=== PATIENT | male | born 1955 | race Two or more races ===

== ENCOUNTER 2019-01-30 13:21 | Emergency (ER) | payer OTHER ==
[2019-01-30] MEDS ORDERED: Aspirin 81 MG Tab.Chew PO ONE (13:23)
[2019-01-30] MEDS ORDERED: Nitroglycerin 0.4 MG Tab.SL SL PRN (13:23)
[2019-01-30] MEDS ORDERED: Albuterol/Ipratropium 3.0-0.5 MG/3 ML Neb Soln NEB ONE (13:23)
--- NOTE | 2019-01-30 13:26 | EDM.PDOC ---
ED HPI GENERAL MEDICAL PROBLEM - General Chief Complaint: Chest Pain Stated Complaint: CHEST PAIN Time Seen by Provider: 01/30/19 13:22 Source of Information: Reports: Patient History Limitations: Reports: No Limitations - History of Present Illness INITIAL COMMENTS - FREE TEXT/NARRATIVE: HISTORY AND PHYSICAL: History of present illness: Patient is a 65-year-old male who presents to the emergency room with complaints of midsternal chest pain and shortness of breath. The pain in the chest is described as a pressure and feels that his chest is "tight". Shortness of breath is exacerbated with physical activity and ambulation. He denies any fever, chills, diaphoresis, headache or change in vision. Denies any abdominal pain, nausea, vomiting, diarrhea, constipation or dysuria. Reports he has been eating and drinking appropriately. Patient reports he is otherwise healthy and has no significant health problems that he has been diagnosed with. He states that the majority of his family members to have a history of hypertension and heart disease. Review of systems: As per history of present illness and below otherwise all systems reviewed and negative. Past medical history: As per history of present illness and as reviewed below otherwise noncontributory. Surgical history: As per history of present illness and as reviewed below otherwise noncontributory. Social history: See social history for further information Family history: As per history of present illness and as reviewed below otherwise noncontributory. Physical exam: General: Well-developed and well-nourished 65-year-old male. Alert and oriented. Nontoxic appearing and in no acute distress. HEENT: Atraumatic, normocephalic, pupils equal and reactive bilaterally, negative for conjunctival pallor or scleral icterus, mucous membranes moist, TMs normal bilaterally, throat clear, neck supple, nontender, trachea midline. No drooling or trismus noted. No meningeal signs. No hot potato voice noted. Lungs: Poor air exchange throughout, diminished on the left chest wall, breath sounds equal bilaterally, chest nontender. Heart: S1S2, regular rate and rhythm without overt murmur Abdomen: Soft, nondistended, nontender. Negative for masses or hepatosplenomegaly. Negative for costovertebral tenderness. Pelvis: Stable nontender. Genitourinary: Deferred. Rectal: Deferred. Skin: Intact, warm, dry. No lesions or rashes noted. Extremities: Atraumatic, moves all extremities per self without difficulty or deficits. Neurovascular unremarkable. Neuro: Awake, alert, oriented. Cranial nerves II through XII unremarkable. Cerebellum unremarkable. Motor and sensory unremarkable throughout. Exam nonfocal. Notes: Patient states he currently does not have any chest pain but tightness with inspiration and dyspnea. Declines the nitroglycerin. We'll give IV medication for blood pressure management. Chest x-ray shows cardiomegaly and vascular prominence with prominent interstitium. No consolidation noted. Patient's blood pressure did come down after the IV medication. I did offer the patient admission which he declines. He is pleasantly adamant about being discharged and states he will follow-up with primary care for reevaluation of his high blood pressure. He is pain free. Due to his symptoms and slight elevation in white count and a cover him for incase of an atypical pneumonia. Supportive care measures were reviewed and discussed. Voices understanding and is agreeable to plan of care. Denies any further questions or concerns at this time. Diagnostics: CBC, CMP, bnp, troponin, EKG, 2 view chest x-ray Therapeutics: Aspirin, sublingual nitroglycerin, labetolol Prescription: Z-Mateus, Medrol Dosepak, pro-air inhaler Impression: Dyspnea Hypertension Plan: 1. Please take the medications as prescribed. 2. I do want to do follow-up with the a primary caregiver for reevaluation of your high blood pressure. You had readings today of 225/115 and 169/107. You may need to be started on medication for this. 3. If her symptoms return, worsen or new symptoms develop please return to the emergency room immediately. Definitive disposition and diagnosis as appropriate pending reevaluation and review of above. - Related Data Allergies Allergy/AdvReac Type Severity Reaction Status Date / Time Penicillins Allergy Hives Verified 01/30/19 13:32 shellfish derived Allergy Hives Verified 01/30/19 13:32 Home Meds: Home Meds . [No Known Home Meds] 01/30/19 [History] ED ROS GENERAL - Review of Systems Review Of Systems: ROS reveals no pertinent complaints other than HPI. ED EXAM, GENERAL - Physical Exam Exam: See Below (See dictation) Course - Vital Signs Last Recorded V/S: Last Vital Signs Temp 97.0 F 01/30/19 13:25 Pulse 88 01/30/19 14:12 Resp 18 01/30/19 14:12 BP 124/84 01/30/19 14:12 Pulse Ox 98 01/30/19 14:12 - Orders/Labs/Meds Orders: Active Orders 24 hr Category Date Time Status EKG Documentation Completion [RC] STAT Care 01/30/19 13:23 Active RT Aerosol Therapy [RC] ASDIRECTED Care 01/30/19 13:23 Active Nitroglycerin [Nitrostat] Med 01/30/19 13:23 Active 0.4 mg SL Q5M PRN Medication Orders Nitroglycerin (Nitrostat) 0.4 mg SL Q5M PRN PRN Reason: Chest Pain Labs: Laboratory Tests 01/30/19 01/30/19 01/30/19 Range/Units 13:25 13:25 13:25 WBC 11.14 H (4.0-11.0) K/uL RBC 4.78 (4.50-5.90) M/uL Hgb 14.9 (13.0-17.0) g/dL Hct 42.9 (38.0-50.0) % MCV 89.7 (80.0-98.0) fL MCH 31.2 (27.0-32.0) pg MCHC 34.7 (31.0-37.0) g/dL RDW Std Deviation 45.8 (28.0-62.0) fl RDW Coeff of Adiel 14 (11.0-15.0) % Plt Count 197 (150-400) K/uL MPV 11.70 (7.40-12.00) fL Neut % (Auto) 69.5 (48.0-80.0) % Lymph % (Auto) 22.4 (16.0-40.0) % [place] % (Auto) 6.5 (0.0-15.0) % Eos % (Auto) 1.3 (0.0-7.0) % Baso % (Auto) 0.3 (0.0-1.5) % Neut # (Auto) 7.8 H (1.4-5.7) K/uL Lymph # (Auto) 2.5 H (0.6-2.4) K/uL [place] # (Auto) 0.7 (0.0-0.8) K/uL Eos # (Auto) 0.1 (0.0-0.7) K/uL Baso # (Auto) 0.0 (0.0-0.1) K/uL Nucleated RBC % 0.0 /100WBC Nucleated RBCs # 0 K/uL Sodium 141 (136-148) mmol/L Potassium 4.1 (3.5-5.1) mmol/L Chloride 107 (98-107) mmol/L Carbon Dioxide 23.9 (21.0-32.0) mmol/L BUN 10 (7.0-18.0) mg/dL Creatinine 0.8 (0.8-1.3) mg/dL Est Cr Clr Drug Dosing 96.97 mL/min Estimated GFR (MDRD) > 60.0 ml/min Glucose 120 H (74-106) mg/dL Calcium 8.6 (8.5-10.1) mg/dL Total Bilirubin 1.0 (0.2-1.0) mg/dL AST 43 H (15-37) IU/L ALT 64 H (14-63) IU/L Alkaline Phosphatase 69 (46-116) U/L Troponin I < 0.050 (0.000-0.056) ng/mL B-Natriuretic Peptide 474 H (<100) PG/ML Total Protein 7.8 (6.4-8.2) g/dL Albumin 3.4 (3.4-5.0) g/dL Globulin 4.4 H (2.6-4.0) g/dL Albumin/Globulin Ratio 0.8 L (0.9-1.6) Meds: Medications Generic Name Dose Route Start Last Admin Trade Name Freq PRN Reason Stop Dose Admin Nitroglycerin 0.4 mg 01/30/19 13:23 Nitrostat SL Q5M PRN Chest Pain Discontinued Medications Generic Name Dose Route Start Last Admin Trade Name Freq PRN Reason Stop Dose Admin Albuterol/Ipratropium 3 ml 01/30/19 13:23 01/30/19 13:27 Duoneb 3.0-0.5 Mg/3 Ml NEB 01/30/19 13:24 3 ml ONETIME ONE Administration Aspirin 324 mg 01/30/19 13:23 01/30/19 13:27 Aspirin PO 01/30/19 13:24 324 mg ONETIME ONE Administration Labetalol HCl 20 mg 01/30/19 13:28 01/30/19 13:34 Normodyne IVPUSH 01/30/19 13:29 20 mg NOW ONE Administration Protocol Departure - Departure Time of Disposition: 14:33 Disposition: Home, Self-Care 01 Clinical Impression: Dyspnea Qualifiers: Dyspnea type: shortness of breath Qualified Code(s): R06.02 - Shortness of breath; R06.00 - Dyspnea, unspecified; R06.01 - Orthopnea Hypertension Qualifiers: Hypertension type: unspecified Qualified Code(s): I10 - Essential (primary) hypertension Instructions: Shortness of Breath, Adult, [id number] Referrals: PCP,Unknown [Primary Care Provider] - Forms: ED Department Discharge Additional Instructions: The following information is given to patients seen in the emergency department who are being discharged to home. This information is to outline your options for follow-up care. We provide all patients seen in our emergency department with a follow-up referral. The need for follow-up, as well as the timing and circumstances, are variable depending upon the specifics of your emergency department visit. If you don't have a primary care physician on staff, we will provide you with a referral. We always advise you to contact your personal physician following an emergency department visit to inform them of the circumstance of the visit and for follow-up with them and/or the need for any referrals to a consulting specialist. The emergency department will also refer you to a specialist when appropriate. This referral assures that you have the opportunity for follow-up care with a specialist. All of these measure are taken in an effort to provide you with optimal care, which includes your follow-up. Under all circumstances we always encourage you to contact your private physician who remains a resource for coordinating your care. When calling for follow-up care, please make the office aware that this follow-up is from your recent emergency room visit. If for any reason you are refused follow-up, please contact the [facility] Emergency Department at and asked to speak to the emergency department charge nurse. [facility] [address] [place] [id number] [facility] [address] [place] [address] 1. Please take the medications as prescribed. 2. I do want to do follow-up with the a primary caregiver for reevaluation of your high blood pressure. You had readings today of 225/115 and 169/107. You may need to be started on medication for this. 3. If her symptoms return, worsen or new symptoms develop please return to the emergency room immediately. - My Orders Last 24 Hours: My Active Orders 01/30/19 13:23 EKG Documentation Completion [RC] STAT RT Aerosol Therapy [RC] ASDIRECTED Nitroglycerin [Nitrostat] 0.4 mg SL Q5M PRN - Assessment/Plan Last 24 Hours: My Active Orders 01/30/19 13:23 EKG Documentation Completion [RC] STAT RT Aerosol Therapy [RC] ASDIRECTED Nitroglycerin [Nitrostat] 0.4 mg SL Q5M PRN
[2019-01-30] MEDS ORDERED: Labetalol 20 MG/4 ML Syringe IVPUSH ONE (13:28)
[2019-01-30 14:00] LABS: CHLORIDE,CL 107 mmol/L (98-107); SODIUM,NA 141 mmol/L (136-148)
--- NOTE | 2019-01-30 14:27 | CR ---
CHEST 2 VIEWS INDICATION: Dyspnea IMPRESSION: Cardiomegaly. Possible mild interstitial edema and vascular prominence but this is difficult to evaluate due to decreased lung volumes. No pulmonary consolidation or large volume effusions. Mild fluid overload or congestive heart failure however could be considered. FINDINGS: Cardiomegaly and vascular prominence with prominent interstitium. This is somewhat accentuated by a crowding due to decreased lung volumes. No consolidation. The costophrenic angles are slightly indistinct but no large effusions are seen. No pneumothorax. EKG leads are present overlying the patient. Dictated by Wyatt Patel MD @ Jan 30 2019 2:24PM Signed by Dr. Wyatt Patel @ Jan 30 2019 2:26PM
== END 2019-01-30 14:51 | disposition home or self-care (01) ==
LOC: EDBD 13:21 → MW.ED 13:21
DX: R06.02 Shortness of breath (principal); R07.2 Precordial pain; I10 Essential (primary) hypertension; Z88.0 Allergy status to penicillin; Z91.013 Allergy to seafood
CPT/HCPCS: 36415; 71046; 80053; 83880; 84484; 85025; 93005; 94640; 96374; 99285; A9270; J3490; J7620-GY

== ENCOUNTER 2019-02-28 12:28 | Emergency (ER) | payer OTHER ==
[2019-02-28] MEDS ORDERED: Albuterol 0.083% 2.5 MG/3 ML Neb Soln NEB ONE (13:38)
[2019-02-28] MEDS ORDERED: methylPREDNISolone Sodium Succinate 125 MG/2 ML SDV IM ONE (13:39)
--- NOTE | 2019-02-28 13:40 | EDM.PDOC ---
ED HPI GENERAL MEDICAL PROBLEM - General Chief Complaint: Respiratory Problem Stated Complaint: SHORTNESS OF BREATH Time Seen by Provider: 02/28/19 13:39 Source of Information: Reports: Patient History Limitations: Reports: No Limitations - History of Present Illness INITIAL COMMENTS - FREE TEXT/NARRATIVE: HISTORY AND PHYSICAL: History of present illness: Patient is a 63-year-old male who presents to the emergency room with complaints of shortness of breath 1 month. He was seen approximately a month ago in the ER and treated with azithromycin, Medrol Dosepak and pro-air inhaler. He states he did feel improvement, but over the past week and a half his symptoms have returned. He states the symptoms are more bothersome at night or when laying flat. Patient denies any fever, chills, headache, change in vision, syncope or near syncope. Denies any chest pain or back pain. Denies any abdominal pain, nausea, vomiting, diarrhea, constipation or dysuria. Has not noted any blood in urine or stool. Patient has been eating and drinking appropriately. Review of systems: As per history of present illness and below otherwise all systems reviewed and negative. Past medical history: As per history of present illness and as reviewed below otherwise noncontributory. Surgical history: As per history of present illness and as reviewed below otherwise noncontributory. Social history: See social history for further information Family history: As per history of present illness and as reviewed below otherwise noncontributory. Physical exam: General: Well-developed and well-nourished 63-year-old male. Alert and oriented. Nontoxic appearing and in no acute distress. HEENT: Atraumatic, normocephalic, pupils equal and reactive bilaterally, negative for conjunctival pallor or scleral icterus, mucous membranes moist, TMs normal bilaterally, throat clear, neck supple, nontender, trachea midline. No drooling or trismus noted. No meningeal signs. No hot potato voice noted. Lungs: Poor air exchange noted to the posterior bases with fine expiratory wheezing, breath sounds equal bilaterally, chest nontender. Heart: S1S2, regular rate and rhythm without overt murmur Abdomen: Soft, nondistended, nontender. Negative for masses or hepatosplenomegaly. Negative for costovertebral tenderness. Pelvis: Stable nontender. Genitourinary: Deferred. Rectal: Deferred. Skin: Intact, warm, dry. No lesions or rashes noted. Extremities: Atraumatic, moves all extremities per self with difficulty or deficits, negative for cords or calf pain. Neurovascular unremarkable. Neuro: Awake, alert, oriented. Cranial nerves II through XII unremarkable. Cerebellum unremarkable. Motor and sensory unremarkable throughout. Exam nonfocal. Notes: X-ray shows a mild bi-basilar infiltrate. Patient does have elevated d-dimer, we 'll do a CTA for follow-up. Chest CT shows small bilateral pleural effusions. The main and central pulmonary arteries are patent without any embolism. I did offer the patient admission which he declines. We'll treat him with outpatient by mouth Levaquin. Vital signs have improved. We discussed the need for appropriate follow-up with primary care as this is his second visit of having high blood pressure. He does want to be started on lisinopril, one dose was given here. He is aware that this medication cannot be refilled her followed through the emergency room. Supportive care measures were reviewed and discussed. Voices understanding and is agreeable to plan of care. Denies any further questions or concerns at this time. Diagnostics: Chest x-ray, EKG, CBC, CMP, Ddimer Therapeutics: DuoNeb, Solu-Medrol IM, Levaquin Prescription: Levaquin Lisinopril Impression: Pneumonia Hypertension Plan: 1. Please take your medications as directed. 2. Establish care with a primary care provider to follow-up on your blood pressure medications and further refills. 3. Return to the ED as needed and as discussed. Definitive disposition and diagnosis as appropriate pending reevaluation and review of above. - Related Data Allergies Allergy/AdvReac Type Severity Reaction Status Date / Time Penicillins Allergy Airway Verified 02/28/19 12:53 Tightness shellfish derived Allergy Airway Verified 02/28/19 12:53 Tightness Home Meds: Home Meds Acetaminophen [Tylenol] 1 tab PO DAILY 02/28/19 [History] Albuterol Sulfate [Proair Hfa] 1 dose IH Q4HR #1 hfa.aer.ad 02/28/19 [Rx] Albuterol [Ventolin HFA] 1 - 2 puff INH Q4H PRN 02/28/19 [History] Lisinopril [Prinivil] 10 mg PO DAILY 30 Days #30 tablet 02/28/19 [Rx] Naproxen Sodium [Aleve] 1 - 2 tab PO BEDTIME 02/28/19 [History] levoFLOXacin [Levaquin] 750 mg PO DAILY 5 Days #5 tab 02/28/19 [Rx] Past Medical History - Past Health History Medical/Surgical History: Denies Medical/Surgical History - Infectious Disease History Infectious Disease History: Reports: Chicken Pox Social & Family History - Family History Family Medical History: Noncontributory - Recreational Drug Use Recreational Drug Use: No ED ROS GENERAL - Review of Systems Review Of Systems: ROS reveals no pertinent complaints other than HPI. ED EXAM, GENERAL - Physical Exam Exam: See Below (See dictation) Course - Vital Signs Last Recorded V/S: Last Vital Signs Temp 97.1 F 02/28/19 14:00 Pulse 88 02/28/19 14:00 Resp 18 02/28/19 14:00 BP 149/85 H 02/28/19 15:21 Pulse Ox 96 02/28/19 14:03 - Orders/Labs/Meds Orders: Active Orders 24 hr Category Date Time Status EKG Documentation Completion [RC] STAT Care 02/28/19 13:39 Active RT Aerosol Therapy [RC] ASDIRECTED Care 02/28/19 13:39 Active Sodium Chloride 0.9% [Saline Flush] Med 02/28/19 14:15 Active 10 ml FLUSH ASDIRECTED PRN Sodium Chloride 0.9% [Saline Flush] Med 02/28/19 14:15 Active 2.5 ml FLUSH ASDIRECTED PRN Saline Lock Insert [OM.PC] Stat Oth 02/28/19 14:15 Ordered Medication Orders Sodium Chloride (Saline Flush) 10 ml FLUSH ASDIRECTED PRN PRN Reason: Keep Vein Open Last Admin: 02/28/19 15:22 Dose: 10 ml Sodium Chloride (Saline Flush) 2.5 ml FLUSH ASDIRECTED PRN PRN Reason: Keep Vein Open Last Admin: 02/28/19 15:22 Dose: 2.5 ml Labs: Laboratory Tests 02/28/19 02/28/19 02/28/19 Range/Units 14:36 14:36 14:36 WBC 6.91 (4.0-11.0) K/uL RBC 4.48 L (4.50-5.90) M/uL Hgb 13.7 (13.0-17.0) g/dL Hct 40.3 (38.0-50.0) % MCV 90.0 (80.0-98.0) fL MCH 30.6 (27.0-32.0) pg MCHC 34.0 (31.0-37.0) g/dL RDW Std Deviation 45.7 (28.0-62.0) fl RDW Coeff of Adiel 14 (11.0-15.0) % Plt Count 219 (150-400) K/uL MPV 10.70 (7.40-12.00) fL Neut % (Auto) 62.6 (48.0-80.0) % Lymph % (Auto) 23.7 (16.0-40.0) % [place] % (Auto) 11.0 (0.0-15.0) % Eos % (Auto) 2.3 (0.0-7.0) % Baso % (Auto) 0.4 (0.0-1.5) % Neut # (Auto) 4.3 (1.4-5.7) K/uL Lymph # (Auto) 1.6 (0.6-2.4) K/uL [place] # (Auto) 0.8 (0.0-0.8) K/uL Eos # (Auto) 0.2 (0.0-0.7) K/uL Baso # (Auto) 0.0 (0.0-0.1) K/uL Nucleated RBC % 0.0 /100WBC Nucleated RBCs # 0 K/uL D-Dimer, Quantitative 0.57 H (0.0-0.50) mg/L FEU Sodium 141 (136-148) mmol/L Potassium 3.8 (3.5-5.1) mmol/L Chloride 106 (98-107) mmol/L Carbon Dioxide 24.5 (21.0-32.0) mmol/L BUN 12 (7.0-18.0) mg/dL Creatinine 0.8 (0.8-1.3) mg/dL Est Cr Clr Drug Dosing 96.97 mL/min Estimated GFR (MDRD) > 60.0 ml/min Glucose 129 H (74-106) mg/dL Calcium 8.7 (8.5-10.1) mg/dL Total Bilirubin 1.0 (0.2-1.0) mg/dL AST 40 H (15-37) IU/L ALT 63 (14-63) IU/L Alkaline Phosphatase 60 (46-116) U/L Troponin I 0.051 (0.000-0.056) ng/mL Total Protein 7.5 (6.4-8.2) g/dL Albumin 3.5 (3.4-5.0) g/dL Globulin 4.0 (2.6-4.0) g/dL Albumin/Globulin Ratio 0.9 (0.9-1.6) Meds: Medications Generic Name Dose Route Start Last Admin Trade Name Freq PRN Reason Stop Dose Admin Sodium Chloride 10 ml 02/28/19 14:15 02/28/19 15:22 Saline Flush FLUSH 10 ml ASDIRECTED PRN Administration Keep Vein Open Sodium Chloride 2.5 ml 02/28/19 14:15 02/28/19 15:22 Saline Flush FLUSH 2.5 ml ASDIRECTED PRN Administration Keep Vein Open Discontinued Medications Generic Name Dose Route Start Last Admin Trade Name Freq PRN Reason Stop Dose Admin Albuterol 2.5 mg 02/28/19 13:38 02/28/19 13:59 Proventil Neb Soln NEB 02/28/19 13:39 2.5 mg ONETIME ONE Administration Levofloxacin/Dextrose 750 mg/ 150 mls @ 100 mls/hr 02/28/19 14:49 02/28/19 15 :44 Premix IV 02/28/19 16:18 100 mls/hr ONETIME ONE Administration Iopamidol 50 ml 02/28/19 15:45 02/28/19 15:46 Isovue Multipack-370 (76%) IVPUSH 02/28/19 15:46 50 ml ONETIME STA Administration Lisinopril 10 mg 02/28/19 14:18 02/28/19 15:21 Prinivil PO 02/28/19 14:19 10 mg ONETIME ONE Administration Methylprednisolone Sodium Succinate 125 mg 02/28/19 13:39 02/28/19 13:59 Solu-Medrol IM 02/28/19 13:40 125 mg ONETIME ONE Administration Departure - Departure Time of Disposition: 16:15 Disposition: Home, Self-Care 01 Clinical Impression: Hypertension Qualifiers: Hypertension type: unspecified Qualified Code(s): I10 - Essential (primary) hypertension Pneumonia Qualifiers: Pneumonia type: due to unspecified organism Laterality: bilateral Lung location : lower lobe of lung Qualified Code(s): J18.1 - Lobar pneumonia, unspecified organism - Discharge Information Prescriptions: Albuterol Sulfate [Proair Hfa] 1 dose IH Q4HR #1 hfa.aer.ad levoFLOXacin [Levaquin] 750 mg PO DAILY 5 Days #5 tab Lisinopril [Prinivil] 10 mg PO DAILY 30 Days #30 tablet Referrals: PCP,Unknown [Primary Care Provider] - Forms: ED Department Discharge Additional Instructions: The following information is given to patients seen in the emergency department who are being discharged to home. This information is to outline your options for follow-up care. We provide all patients seen in our emergency department with a follow-up referral. The need for follow-up, as well as the timing and circumstances, are variable depending upon the specifics of your emergency department visit. If you don't have a primary care physician on staff, we will provide you with a referral. We always advise you to contact your personal physician following an emergency department visit to inform them of the circumstance of the visit and for follow-up with them and/or the need for any referrals to a consulting specialist. The emergency department will also refer you to a specialist when appropriate. This referral assures that you have the opportunity for follow-up care with a specialist. All of these measure are taken in an effort to provide you with optimal care, which includes your follow-up. Under all circumstances we always encourage you to contact your private physician who remains a resource for coordinating your care. When calling for follow-up care, please make the office aware that this follow-up is from your recent emergency room visit. If for any reason you are refused follow-up, please contact the [facility] Emergency Department at and asked to speak to the emergency department charge nurse. [facility] [address] [place] [address] [id number] [address] [address] 1. Please take your medications as directed. 2. Establish care with a primary care provider to follow-up on your blood pressure medications and further refills. 3. Return to the ED as needed and as discussed. - My Orders Last 24 Hours: My Active Orders 02/28/19 14:15 Sodium Chloride 0.9% [Saline Flush] 10 ml FLUSH ASDIRECTED PRN Sodium Chloride 0.9% [Saline Flush] 2.5 ml FLUSH ASDIRECTED PRN Saline Lock Insert [OM.PC] Stat - Assessment/Plan Last 24 Hours: My Active Orders 02/28/19 14:15 Sodium Chloride 0.9% [Saline Flush] 10 ml FLUSH ASDIRECTED PRN Sodium Chloride 0.9% [Saline Flush] 2.5 ml FLUSH ASDIRECTED PRN Saline Lock Insert [OM.PC] Stat
[2019-02-28] MEDS ORDERED: Sodium Chloride 0.9% 10 ML Syringe FLUSH PRN (14:15)
[2019-02-28] MEDS ORDERED: Sodium Chloride 0.9% 2.5 ML Syringe FLUSH PRN (14:15)
[2019-02-28] MEDS ORDERED: Lisinopril 10 MG Tab PO ONE (14:18)
--- NOTE | 2019-02-28 14:33 | CR ---
EXAMINATION: Two-view chest (PA and Lateral views). HISTORY: Shortness of breath. FINDINGS: The trachea is midline. The heart is borderline in size. The cardiomediastinal silhouette is within normal limits. Mild bibasilar atelectasis and/or infiltrate. No pleural effusion or pneumothorax. Osseous structures appear unremarkable. IMPRESSION: Mild bibasilar atelectasis and/or infiltrate.
[2019-02-28] MEDS ORDERED: Levofloxacin/Dextrose 5%-Water 750 MG in Premix Bag 1 BAG IV ONE (14:49)
[2019-02-28 15:13] LABS: CHLORIDE,CL 106 mmol/L (98-107); SODIUM,NA 141 mmol/L (136-148)
[2019-02-28] MEDS ORDERED: Iopamidol 755 MG/ML 500 ML Multipack Bottle IVPUSH STA (15:45)
--- NOTE | 2019-02-28 16:05 | CT ---
EXAMINATION: CTA chest HISTORY: Chest pain COMPARISON: Radiographs dated 02/28/2019 TECHNIQUE: Axial CT imaging obtained through the chest following the administration of 50 mL of Isovue-370 in the left antecubital fossa. Coronal and sagittal reconstructions obtained. FINDINGS: Small bilateral pleural effusions are noted, right greater than left. The heart is borderline in size with a trace pericardial effusion. Coronary artery calcifications are noted. Thoracic aorta is normal in caliber. The main and central pulmonary arteries are patent without evidence of pulmonary embolism. The central airways are clear. No axillary, mediastinal, hilar lymphadenopathy. No suspicious osseous abnormalities identified. Visualized images of the upper abdomen are grossly unremarkable. IMPRESSION: 1. Small bilateral pleural effusions, right greater than left. 2. The heart is borderline in size with a trace pericardial effusion. 3. Moderate coronary artery calcifications. 4. The main and central pulmonary arteries are patent without identified embolism.
== END 2019-02-28 17:29 | disposition home or self-care (01) ==
LOC: MW.ED 12:28
DX: J18.1 Lobar pneumonia, unspecified organism (principal); I10 Essential (primary) hypertension; Z88.0 Allergy status to penicillin; Z91.013 Allergy to seafood
CPT/HCPCS: 36415; 71046; 71275; 80053; 84484; 85025; 85379; 93005; 94640; 96365; 96366; 96372; 99285; A9270; J1956; J2930; Q9967; 99284

== ENCOUNTER 2019-06-08 10:12 | Observation (INO) | payer OTHER ==
[2019-06-08] MEDS ORDERED: Sodium Chloride 0.9% 2.5 ML Syringe FLUSH PRN (10:14)
[2019-06-08] MEDS ORDERED: Sodium Chloride 0.9% 10 ML Syringe FLUSH PRN (10:14)
--- NOTE | 2019-06-08 10:46 | EDM.PDOC ---
ED HPI GENERAL MEDICAL PROBLEM - General Chief Complaint: Cardiovascular Problem Stated Complaint: SHORTNESS OF BREATH AND DIZZINESS Time Seen by Provider: 06/08/19 10:46 Source of Information: Reports: Patient History Limitations: Reports: No Limitations - History of Present Illness INITIAL COMMENTS - FREE TEXT/NARRATIVE: HISTORY AND PHYSICAL: History of present illness: Patient is a 63-year-old male presents to the ED with complaint of shortness of breath and dizziness. Since the past few days he is having shortness of breath and occasional dizziness with walking. He denies any symptoms currently or when at rest. He denies chest pain, palpitations, nausea, vomiting, diaphoresis. He states he was recently switched from lisinopril to losartan and wonders if this is contributing. Has history of asthma but has not been using his rescue inhaler. He states he been treated a few months ago for pneumonia. Review of systems: As per history of present illness and below otherwise all systems reviewed and negative. Past medical history: As per history of present illness and as reviewed below otherwise noncontributory. Surgical history: As per history of present illness and as reviewed below otherwise noncontributory. Social history: No reported history of drug or alcohol abuse. Family history: As per history of present illness and as reviewed below otherwise noncontributory. Physical exam: General: Patient sitting comfortably in no acute distress and nontoxic appearing HEENT: Atraumatic, normocephalic, pupils reactive, negative for conjunctival pallor or scleral icterus, mucous membranes moist, throat clear, neck supple, nontender, trachea midline. No meningeal signs. Lungs: Apical wheezing noted with diminished breath sounds on the right, chest nontender. Heart: S1S2, regular, negative for clicks, rubs, or overt murmur. Abdomen: Soft, nondistended, nontender. Negative for masses or hepatosplenomegaly. Negative for costovertebral tenderness. No rigidity, rebound , guarding. Pelvis: Stable nontender. Genitourinary: Deferred. Rectal: Deferred. Extremities: Atraumatic, negative for cords or calf pain. Neurovascular unremarkable. 1+ pitting edema bilaterally Neuro: Awake, alert, oriented. Cranial nerves II through XII unremarkable. Cerebellum unremarkable. Motor and sensory unremarkable throughout. Exam nonfocal. Notes: Diagnostics: CBC, CMP, troponin, PT/INR, EKG, chest x-ray Therapeutics: DuoNeb Prescriptions: Impression: CHF, dyspnea Plan: Discussed with Dr. Grayson, patient admitted to observation Definitive disposition and diagnosis as appropriate pending reevaluation and review of above. - Related Data Allergies Allergy/AdvReac Type Severity Reaction Status Date / Time Penicillins Allergy Airway Verified 06/08/19 10:37 Tightness shellfish derived Allergy Airway Verified 06/08/19 10:37 Tightness Home Meds: Home Meds Albuterol [Ventolin HFA] 1 - 2 puff INH Q4H PRN 02/28/19 [History] Lisinopril [Prinivil] 10 mg PO DAILY 30 Days #30 tablet 02/28/19 [Rx] Losartan Potassium 1 tab PO DAILY 06/08/19 [History] Past Medical History - Past Health History Medical/Surgical History: Denies Medical/Surgical History Cardiovascular History: Reports: Hypertension Respiratory History: Reports: Pneumonia, Recurrent - Infectious Disease History Infectious Disease History: Reports: Chicken Pox Social & Family History - Family History Family Medical History: Noncontributory - Tobacco Use Smoking Status *Q: Light Tobacco Smoker Years of Tobacco use: 20 Packs/Tins Daily: 0.2 - Recreational Drug Use Recreational Drug Use: No ED ROS GENERAL - Review of Systems Review Of Systems: ROS reveals no pertinent complaints other than HPI. ED EXAM, GENERAL - Physical Exam Exam: See Below (See dictation) Course - Vital Signs Last Recorded V/S: Last Vital Signs Temp 96.9 F 06/08/19 10:34 Pulse 108 H 06/08/19 10:34 Resp 20 06/08/19 10:34 BP 153/97 H 06/08/19 10:34 Pulse Ox 95 06/08/19 10:34 - Orders/Labs/Meds Orders: Active Orders 24 hr Category Date Time Status Cardiac Monitoring [RC] . DIRECTED Care 06/08/19 10:14 Active EKG Documentation Completion [RC] STAT Care 06/08/19 10:14 Active RT Aerosol Therapy [RC] ASDIRECTED Care 06/08/19 10:50 Active Sodium Chloride 0.9% [Saline Flush] Med 06/08/19 10:14 Active 10 ml FLUSH ASDIRECTED PRN Sodium Chloride 0.9% [Saline Flush] Med 06/08/19 10:14 Active 2.5 ml FLUSH ASDIRECTED PRN Saline Lock Insert [OM.PC] Stat Ot 06/08/19 10:14 Ordered Medication Orders Sodium Chloride (Saline Flush) 10 ml FLUSH ASDIRECTED PRN PRN Reason: Keep Vein Open Sodium Chloride (Saline Flush) 2.5 ml FLUSH ASDIRECTED PRN PRN Reason: Keep Vein Open Labs: Laboratory Tests 06/08/19 06/08/19 06/08/19 Range/Units 10:39 10:39 10:39 WBC 7.83 (4.0-11.0) K/uL RBC 4.33 L (4.50-5.90) M/uL Hgb 12.8 L (13.0-17.0) g/dL Hct 38.9 (38.0-50.0) % MCV 89.8 (80.0-98.0) fL MCH 29.6 (27.0-32.0) pg MCHC 32.9 (31.0-37.0) g/dL RDW Std Deviation 50.0 (28.0-62.0) fl RDW Coeff of Adiel 15 (11.0-15.0) % Plt Count 182 (150-400) K/uL MPV 11.30 (7.40-12.00) fL Neut % (Auto) 67.7 (48.0-80.0) % Lymph % (Auto) 21.3 (16.0-40.0) % [place] % (Auto) 9.1 (0.0-15.0) % Eos % (Auto) 1.5 (0.0-7.0) % Baso % (Auto) 0.4 (0.0-1.5) % Neut # (Auto) 5.3 (1.4-5.7) K/uL Lymph # (Auto) 1.7 (0.6-2.4) K/uL [place] # (Auto) 0.7 (0.0-0.8) K/uL Eos # (Auto) 0.1 (0.0-0.7) K/uL Baso # (Auto) 0.0 (0.0-0.1) K/uL Nucleated RBC % 0.0 /100WBC Nucleated RBCs # 0 K/uL INR 1.24 Sodium 138 (136-148) mmol/L Potassium 4.0 (3.5-5.1) mmol/L Chloride 105 (98-107) mmol/L Carbon Dioxide 22.8 (21.0-32.0) mmol/L BUN 20 H (7.0-18.0) mg/dL Creatinine 0.9 (0.8-1.3) mg/dL Est Cr Clr Drug Dosing 86.19 mL/min Estimated GFR (MDRD) > 60.0 ml/min Glucose 136 H (74-106) mg/dL Calcium 9.0 (8.5-10.1) mg/dL Total Bilirubin 1.2 H (0.2-1.0) mg/dL AST 40 H (15-37) IU/L ALT 52 (14-63) IU/L Alkaline Phosphatase 64 (46-116) U/L Troponin I 0.057 H (0.000-0.056) ng/mL B-Natriuretic Peptide (<100) PG/ML Total Protein 7.6 (6.4-8.2) g/dL Albumin 3.5 (3.4-5.0) g/dL Globulin 4.1 H (2.6-4.0) g/dL Albumin/Globulin Ratio 0.9 (0.9-1.6) 06/08/19 Range/Units 10:39 WBC (4.0-11.0) K/uL RBC (4.50-5.90) M/uL Hgb (13.0-17.0) g/dL Hct (38.0-50.0) % MCV (80.0-98.0) fL MCH (27.0-32.0) pg MCHC (31.0-37.0) g/dL RDW Std Deviation (28.0-62.0) fl RDW Coeff of Adiel (11.0-15.0) % Plt Count (150-400) K/uL MPV (7.40-12.00) fL Neut % (Auto) (48.0-80.0) % Lymph % (Auto) (16.0-40.0) % [place] % (Auto) (0.0-15.0) % Eos % (Auto) (0.0-7.0) % Baso % (Auto) (0.0-1.5) % Neut # (Auto) (1.4-5.7) K/uL Lymph # (Auto) (0.6-2.4) K/uL [place] # (Auto) (0.0-0.8) K/uL Eos # (Auto) (0.0-0.7) K/uL Baso # (Auto) (0.0-0.1) K/uL Nucleated RBC % /100WBC Nucleated RBCs # K/uL INR Sodium (136-148) mmol/L Potassium (3.5-5.1) mmol/L Chloride (98-107) mmol/L Carbon Dioxide (21.0-32.0) mmol/L BUN (7.0-18.0) mg/dL Creatinine (0.8-1.3) mg/dL Est Cr Clr Drug Dosing mL/min Estimated GFR (MDRD) ml/min Glucose (74-106) mg/dL Calcium (8.5-10.1) mg/dL Total Bilirubin (0.2-1.0) mg/dL AST (15-37) IU/L ALT (14-63) IU/L Alkaline Phosphatase (46-116) U/L Troponin I (0.000-0.056) ng/mL B-Natriuretic Peptide 1070 H (<100) PG/ML Total Protein (6.4-8.2) g/dL Albumin (3.4-5.0) g/dL Globulin (2.6-4.0) g/dL Albumin/Globulin Ratio (0.9-1.6) Meds: Medications Generic Name Dose Route Start Last Admin Trade Name Freq PRN Reason Stop Dose Admin Sodium Chloride 10 ml 06/08/19 10:14 Saline Flush FLUSH ASDIRECTED PRN Keep Vein Open Sodium Chloride 2.5 ml 06/08/19 10:14 Saline Flush FLUSH ASDIRECTED PRN Keep Vein Open Discontinued Medications Generic Name Dose Route Start Last Admin Trade Name Freq PRN Reason Stop Dose Admin Albuterol/Ipratropium 3 ml 06/08/19 10:50 06/08/19 11:17 Duoneb 3.0-0.5 Mg/3 Ml NEB 06/08/19 10:51 3 ml ONETIME ONE Administration Departure - Departure Time of Disposition: 12:46 Disposition: Home, Self-Care 01 Condition: Good Clinical Impression: CHF (congestive heart failure) Dyspnea Qualifiers: Dyspnea type: shortness of breath Qualified Code(s): R06.02 - Shortness of breath Referrals: PCP,Unknown [Primary Care Provider] - Forms: ED Department Discharge - My Orders Last 24 Hours: My Active Orders 06/08/19 10:14 Cardiac Monitoring [RC] . DIRECTED EKG Documentation Completion [RC] STAT Sodium Chloride 0.9% [Saline Flush] 10 ml FLUSH ASDIRECTED PRN Sodium Chloride 0.9% [Saline Flush] 2.5 ml FLUSH ASDIRECTED PRN Saline Lock Insert [OM.PC] Stat 06/08/19 10:50 RT Aerosol Therapy [RC] ASDIRECTED - Assessment/Plan Last 24 Hours: My Active Orders 06/08/19 10:14 Cardiac Monitoring [RC] . DIRECTED EKG Documentation Completion [RC] STAT Sodium Chloride 0.9% [Saline Flush] 10 ml FLUSH ASDIRECTED PRN Sodium Chloride 0.9% [Saline Flush] 2.5 ml FLUSH ASDIRECTED PRN Saline Lock Insert [OM.PC] Stat 06/08/19 10:50 RT Aerosol Therapy [RC] ASDIRECTED
[2019-06-08] MEDS ORDERED: Albuterol/Ipratropium 3.0-0.5 MG/3 ML Neb Soln NEB ONE (10:50)
--- NOTE | 2019-06-08 11:00 | CR ---
EXAMINATION: PA chest radiograph. HISTORY: Shortness of breath. FINDINGS: The trachea is midline. The heart is borderline in size. The cardiomediastinal silhouette is within normal limits. Trace right pleural effusion. No focal consolidation or pneumothorax. Right perihilar atelectasis. Osseous structures appear unremarkable. Old right rib fracture. IMPRESSION: 1. Mild cardiomegaly and trace right pleural effusion.
[2019-06-08 11:15] LABS: CHLORIDE,CL 105 mmol/L (98-107); SODIUM,NA 138 mmol/L (136-148)
[2019-06-08] MEDS ORDERED: Ondansetron 4 MG/2 ML SDV IVPUSH PRN (13:57)
[2019-06-08] MEDS ORDERED: Acetaminophen 325 MG Tab PO PRN (13:57)
[2019-06-08] MEDS ORDERED: Albuterol 8 GM Inhaler INH PRN (13:59)
[2019-06-08] MEDS ORDERED: Furosemide 40 MG/4 ML VIAL IVPUSH ONE ×2 (13:59→16:15)
--- NOTE | 2019-06-08 14:01 | PCM.HP ---
<Lynda Woo M - Last Filed: 06/08/19 14:28> H&P History of Present Illness - General Date of Service: 06/08/19 Admit Problem/Dx: Admission Diagnosis/Problem Admission Diagnosis/Problem CHF, Congestive heart failure Source of Information: Patient History Limitations: Reports: No Limitations - History of Present Illness Initial Comments - Free Text/Narative: This 63 year old male with pmh of HTN and DM Type 2 presented to the ED today with complaints of SOB. He noticed the SOB worsening over the last 2 weeks or so. Today he was walking at work and felt very SOB after normal activity and was concerned. He reports a dry cough as well. He saw his PCP 2 weeks ago about the cough and he was changed from Lisinopril to Losartan. He reports mild swelling to feet and ankles. He denies orthopnea. No chest pain or palpations or abdominal pain. No urinary concerns. He has no history of heart failure. His mother had CHF and this is what she from. He denies known CAD. Reports recently being diagnosed with DM Type 2, but was not started on medications. He chews tobacco, 1 tin every 3-4 days. No alcohol use or recreational drug use. In the ED CBC NWL. BUN 20 and Cr 0.9. Glucose 136, A1c 6.9 from june 03. Bili 1.2, AST 40 Troponin 0.057, BNP 1070. CXR revealed mild cardiomegaly and small right sided pleural effusion. He was treated with albuterol in the ED. He will be admitted with dyspnea related to suspected CHF. - Related Data Allergies/Adverse Reactions: Allergies Allergy/AdvReac Type Severity Reaction Status Date / Time Penicillins Allergy Airway Verified 06/08/19 13:47 Tightness shellfish derived Allergy Airway Verified 06/08/19 13:47 Tightness Home Medications: Home Meds Albuterol [Ventolin HFA] 1 - 2 puff INH Q4H PRN 02/28/19 [History] Lisinopril [Prinivil] 10 mg PO DAILY 30 Days #30 tablet 02/28/19 [Rx] Losartan Potassium 1 tab PO DAILY 06/08/19 [History] Past Medical History - Past Health History Medical/Surgical History: Denies Medical/Surgical History Cardiovascular History: Reports: Hypertension Respiratory History: Reports: Pneumonia, Recurrent Gastrointestinal History: Reports: None. Denies: GERD Musculoskeletal History: Reports: None Neurological History: Reports: None. Denies: CVA, TIA Endocrine/Metabolic History: Reports: Diabetes, Type II, Obesity/BMI 30+ - Infectious Disease History Infectious Disease History: Reports: Chicken Pox - Past Surgical History Cardiovascular Surgical History: Reports: None GI Surgical History: Reports: None Social & Family History - Family History Family Medical History: Noncontributory - Tobacco Use Smoking Status *Q: Light Tobacco Smoker Tobacco Use Within Last Twelve Months: Smokeless Tobacco Years of Tobacco use: 20 Packs/Tins Daily: 0.2 - Alcohol Use Alcohol Use History: No - Recreational Drug Use Recreational Drug Use: No - Living Situation & Occupation Occupation: Employed H&P Review of Systems - Review of Systems: Review Of Systems: See Below General: Reports: Fatigue. Denies: Fever, Chills HEENT: Reports: No Symptoms. Denies: Headaches, Sinus Congestion, Vertigo Pulmonary: Reports: Shortness of Breath, Cough. Denies: Sputum Cardiovascular: Reports: Dyspnea on Exertion, Edema, Lightheadedness. Denies: Chest Pain, Palpitations, Orthopnea, Syncope, Blood Pressure Problem Gastrointestinal: Reports: No Symptoms. Denies: Abdominal Pain, Constipation, Diarrhea, Nausea, Vomiting Genitourinary: Reports: No Symptoms. Denies: Dysuria, Frequency, Burning Musculoskeletal: Reports: No Symptoms Skin: Reports: No Symptoms Psychiatric: Reports: No Symptoms Neurological: Reports: No Symptoms Hematologic/Lymphatic: Reports: No Symptoms Immunologic: Reports: No Symptoms Exam - Exam Exam: See Below - Vital Signs Vital Signs: Last Vital Signs Temp 98.1 F 06/08/19 13:42 Pulse 103 H 06/08/19 13:42 Resp 20 06/08/19 13:42 BP 185/119 H 06/08/19 13:42 Pulse Ox 96 06/08/19 13:42 Weight: 113.398 kg - Exam General: Alert, Oriented, Cooperative HEENT: Conjunctiva Clear, Mucosa Moist & [place], Posterior Pharynx Clear Neck: Supple, Trachea Midline, JVD (mild) Lungs: Normal Respiratory Effort, Crackles (bibasilar) Cardiovascular: Regular Rate, Regular Rhythm, Normal S1, Normal S2. No: Systolic Murmur GI/Abdominal Exam: Normal Bowel Sounds, Soft, Non-Tender Back Exam: Normal Inspection, Full Range of Motion Extremities: Normal Inspection, Normal Range of Motion, Non-Tender, Pedal Edema (+1 non pitting) Neuro Extensive - Mental Status: Alert, Oriented x3 Neuro Extensive - Motor, Sensory, Reflexes: CN II-XII Intact Psychiatric: Alert, Normal Affect, Normal Mood - Patient Data Lab Results Last 24 hrs: Laboratory Results - last 24 hr 06/08/19 06/08/19 06/08/19 Range/Units 10:39 10:39 10:39 WBC 7.83 (4.0-11.0) K/uL RBC 4.33 L (4.50-5.90) M/uL Hgb 12.8 L (13.0-17.0) g/dL Hct 38.9 (38.0-50.0) % MCV 89.8 (80.0-98.0) fL MCH 29.6 (27.0-32.0) pg MCHC 32.9 (31.0-37.0) g/dL RDW Std Deviation 50.0 (28.0-62.0) fl RDW Coeff of Adiel 15 (11.0-15.0) % Plt Count 182 (150-400) K/uL MPV 11.30 (7.40-12.00) fL Neut % (Auto) 67.7 (48.0-80.0) % Lymph % (Auto) 21.3 (16.0-40.0) % [place] % (Auto) 9.1 (0.0-15.0) % Eos % (Auto) 1.5 (0.0-7.0) % Baso % (Auto) 0.4 (0.0-1.5) % Neut # (Auto) 5.3 (1.4-5.7) K/uL Lymph # (Auto) 1.7 (0.6-2.4) K/uL [place] # (Auto) 0.7 (0.0-0.8) K/uL Eos # (Auto) 0.1 (0.0-0.7) K/uL Baso # (Auto) 0.0 (0.0-0.1) K/uL Nucleated RBC % 0.0 /100WBC Nucleated RBCs # 0 K/uL INR 1.24 Sodium 138 (136-148) mmol/L Potassium 4.0 (3.5-5.1) mmol/L Chloride 105 (98-107) mmol/L Carbon Dioxide 22.8 (21.0-32.0) mmol/L BUN 20 H (7.0-18.0) mg/dL Creatinine 0.9 (0.8-1.3) mg/dL Est Cr Clr Drug Dosing 86.19 mL/min Estimated GFR (MDRD) > 60.0 ml/min Glucose 136 H (74-106) mg/dL Calcium 9.0 (8.5-10.1) mg/dL Total Bilirubin 1.2 H (0.2-1.0) mg/dL AST 40 H (15-37) IU/L ALT 52 (14-63) IU/L Alkaline Phosphatase 64 (46-116) U/L Troponin I 0.057 H (0.000-0.056) ng/mL B-Natriuretic Peptide (<100) PG/ML Total Protein 7.6 (6.4-8.2) g/dL Albumin 3.5 (3.4-5.0) g/dL Globulin 4.1 H (2.6-4.0) g/dL Albumin/Globulin Ratio 0.9 (0.9-1.6) 06/08/19 Range/Units 10:39 WBC (4.0-11.0) K/uL RBC (4.50-5.90) M/uL Hgb (13.0-17.0) g/dL Hct (38.0-50.0) % MCV (80.0-98.0) fL MCH (27.0-32.0) pg MCHC (31.0-37.0) g/dL RDW Std Deviation (28.0-62.0) fl RDW Coeff of Adiel (11.0-15.0) % Plt Count (150-400) K/uL MPV (7.40-12.00) fL Neut % (Auto) (48.0-80.0) % Lymph % (Auto) (16.0-40.0) % [place] % (Auto) (0.0-15.0) % Eos % (Auto) (0.0-7.0) % Baso % (Auto) (0.0-1.5) % Neut # (Auto) (1.4-5.7) K/uL Lymph # (Auto) (0.6-2.4) K/uL [place] # (Auto) (0.0-0.8) K/uL Eos # (Auto) (0.0-0.7) K/uL Baso # (Auto) (0.0-0.1) K/uL Nucleated RBC % /100WBC Nucleated RBCs # K/uL INR Sodium (136-148) mmol/L Potassium (3.5-5.1) mmol/L Chloride (98-107) mmol/L Carbon Dioxide (21.0-32.0) mmol/L BUN (7.0-18.0) mg/dL Creatinine (0.8-1.3) mg/dL Est Cr Clr Drug Dosing mL/min Estimated GFR (MDRD) ml/min Glucose (74-106) mg/dL Calcium (8.5-10.1) mg/dL Total Bilirubin (0.2-1.0) mg/dL AST (15-37) IU/L ALT (14-63) IU/L Alkaline Phosphatase (46-116) U/L Troponin I (0.000-0.056) ng/mL B-Natriuretic Peptide 1070 H (<100) PG/ML Total Protein (6.4-8.2) g/dL Albumin (3.4-5.0) g/dL Globulin (2.6-4.0) g/dL Albumin/Globulin Ratio (0.9-1.6) Result Diagrams: 06/08/19 10:39 06/08/19 10:39 EKG INTERPRETATION EKG Date: 06/08/19 Rhythm: NSR [place]: Normal QRS: Normal ST-T: Normal QT: Normal - Problem List (1) CHF (congestive heart failure) SNOMED Code(s): 38519924 ICD Code: I50.9 - HEART FAILURE, UNSPECIFIED Status: Acute Current Visit : Yes Qualifiers: Heart failure type: unspecified Heart failure chronicity: acute Qualified Code(s): I50.9 - Heart failure, unspecified (2) Dyspnea SNOMED Code(s): 903319099 ICD Code: R06.00 - DYSPNEA, UNSPECIFIED Status: Acute Current Visit: Yes Qualifiers: Dyspnea type: shortness of breath Qualified Code(s): R06.02 - Shortness of breath; R06.00 - Dyspnea, unspecified; R06.01 - Orthopnea (3) DM type 2 (diabetes mellitus, type 2) SNOMED Code(s): 91342926 ICD Code: E11.9 - TYPE 2 DIABETES MELLITUS WITHOUT COMPLICATIONS Status: Chronic Current Visit: Yes Qualifiers: Diabetes mellitus meterman insulin use: without intermediate use Diabetes mellitus complication status: without complication Qualified Code(s): E11.9 - Type 2 diabetes mellitus without complications (4) Hypertension SNOMED Code(s): 78561200 ICD Code: I10 - ESSENTIAL (PRIMARY) HYPERTENSION Status: Chronic Current Visit: No Qualifiers: Hypertension type: essential hypertension Qualified Code(s): I10 - Essential (primary) hypertension Problem List Initiated/Reviewed/Updated: Yes Orders Last 24hrs: Active Orders 24 hr Category Date Time Status Admission Status [Patient Status] [ADT] Stat ADT 06/08/19 12:46 Active Cardiac Monitoring [RC] . DIRECTED Care 06/08/19 10:14 Active Daily Weight [Height and Weight] [RC] DAILY Care 06/08/19 13:58 Ordered EKG Documentation Completion [RC] STAT Care 06/08/19 10:14 Active Intake and Output Strict [RC] ASDIRECTED Care 06/08/19 13:59 Ordered Oxygen Therapy [RC] PRN Care 06/08/19 13:57 Ordered RT Aerosol Therapy [RC] ASDIRECTED Care 06/08/19 10:50 Active Telemetry Monitoring [Cardiac Monitoring] [RC] . Care 06/08/19 14:01 Ordered DIRECTED Up ad Misty [RC] ASDIRECTED Care 06/08/19 13:57 Ordered VTE/DVT Education [RC] PER UNIT ROUTINE Care 06/08/19 13:57 Ordered Vital Signs [RC] Q4H Care 06/08/19 13:57 Ordered 2 Gram Sodium Diet [DIET] Diet 06/08/19 Lunch Ordered Echo Comp wo Cont [US] Urgent Exams 06/08/19 14:00 Ordered CBC WITH AUTO DIFF [HEME] AM Lab 06/09/19 05:11 Ordered COMPREHENSIVE METABOLIC PN,CMP [CHEM] AM Lab 06/09/19 05:11 Ordered Acetaminophen [Tylenol] Med 06/08/19 13:57 Ordered 650 mg PO Q4H PRN Albuterol [Ventolin HFA] Med 06/08/19 13:59 Ordered 1 - 2 puff INH Q4H PRN Enoxaparin [Lovenox] Med 06/08/19 14:00 Ordered 40 mg SUBCUT Q24H Ondansetron [Zofran] Med 06/08/19 13:57 Ordered 4 mg IVPUSH Q4H PRN Sodium Chloride 0.9% [Saline Flush] Med 06/08/19 10:14 Active 10 ml FLUSH ASDIRECTED PRN Sodium Chloride 0.9% [Saline Flush] Med 06/08/19 10:14 Active 2.5 ml FLUSH ASDIRECTED PRN Saline Lock Insert [OM.PC] Stat Oth 06/08/19 10:14 Ordered Resuscitation Status Routine Resus Stat 06/08/19 13:57 Ordered Medication Orders Acetaminophen (Tylenol) 650 mg PO Q4H PRN PRN Reason: Pain (mild 1-3) Albuterol (Ventolin Hfa) gm INH Q4H PRN PRN Reason: Dyspnea Enoxaparin Sodium (Lovenox) 40 mg SUBCUT Q24H [place] Ondansetron HCl (Zofran) 4 mg IVPUSH Q4H PRN PRN Reason: Nausea Sodium Chloride (Saline Flush) 10 ml FLUSH ASDIRECTED PRN PRN Reason: Keep Vein Open Sodium Chloride (Saline Flush) 2.5 ml FLUSH ASDIRECTED PRN PRN Reason: Keep Vein Open Assessment/Plan Comment:: This 63 year old male admitted with dyspnea secondary due to suspected CHF 1. CHF: No hx of. will obtain ECHO. Lasix 40 mg IV now. Strict I/O, daily weights. Low Na diet. Will obtain lipid panel if not recently checked. 2. HTN: Stable. Will hold Losartan for now, during diuresis. 3. DM Type 2: Recently diagnosed, not started on medications yet. Will Cover with Novolog SSI and consult DM educator. DC home on Metformin. 4. Elevated Bili and AST: Will obtain RUQ US and hepatitis panel. Likely secondary to fatty infiltration of liver and DM. No pain. VTE prophylaxis: Lovenox. Dispo: 1-2 days pending improvement. <Johnnie Granados - Last Filed: 06/08/19 18:20> H&P History of Present Illness - General Admit Problem/Dx: Admission Diagnosis/Problem Admission Diagnosis/Problem CHF, Congestive heart failure I have examined the patient independently of Lynda Woo CNP. I have discussed the case with her. I have reviewed and agree with the examination and plan as outlined by her. Please see orders. Exam - Vital Signs Vital Signs: Last Vital Signs Temp 36.7 C 06/08/19 17:57 Pulse 101 H 06/08/19 17:57 Resp 16 06/08/19 17:57 BP 173/98 H 06/08/19 17:57 Pulse Ox 93 L 06/08/19 17:57 - Patient Data Lab Results Last 24 hrs: Laboratory Results - last 24 hr 06/08/19 06/08/19 06/08/19 Range/Units 10:39 10:39 10:39 WBC 7.83 (4.0-11.0) K/uL RBC 4.33 L (4.50-5.90) M/uL Hgb 12.8 L (13.0-17.0) g/dL Hct 38.9 (38.0-50.0) % MCV 89.8 (80.0-98.0) fL MCH 29.6 (27.0-32.0) pg MCHC 32.9 (31.0-37.0) g/dL RDW Std Deviation 50.0 (28.0-62.0) fl RDW Coeff of Adiel 15 (11.0-15.0) % Plt Count 182 (150-400) K/uL MPV 11.30 (7.40-12.00) fL Neut % (Auto) 67.7 (48.0-80.0) % Lymph % (Auto) 21.3 (16.0-40.0) % [place] % (Auto) 9.1 (0.0-15.0) % Eos % (Auto) 1.5 (0.0-7.0) % Baso % (Auto) 0.4 (0.0-1.5) % Neut # (Auto) 5.3 (1.4-5.7) K/uL Lymph # (Auto) 1.7 (0.6-2.4) K/uL [place] # (Auto) 0.7 (0.0-0.8) K/uL Eos # (Auto) 0.1 (0.0-0.7) K/uL Baso # (Auto) 0.0 (0.0-0.1) K/uL Nucleated RBC % 0.0 /100WBC Nucleated RBCs # 0 K/uL INR 1.24 Sodium 138 (136-148) mmol/L Potassium 4.0 (3.5-5.1) mmol/L Chloride 105 (98-107) mmol/L Carbon Dioxide 22.8 (21.0-32.0) mmol/L BUN 20 H (7.0-18.0) mg/dL Creatinine 0.9 (0.8-1.3) mg/dL Est Cr Clr Drug Dosing 86.19 mL/min Estimated GFR (MDRD) > 60.0 ml/min Glucose 136 H (74-106) mg/dL POC Glucose (60-110) mg/dL Calcium 9.0 (8.5-10.1) mg/dL Total Bilirubin 1.2 H (0.2-1.0) mg/dL AST 40 H (15-37) IU/L ALT 52 (14-63) IU/L Alkaline Phosphatase 64 (46-116) U/L Troponin I 0.057 H (0.000-0.056) ng/mL B-Natriuretic Peptide (<100) PG/ML Total Protein 7.6 (6.4-8.2) g/dL Albumin 3.5 (3.4-5.0) g/dL Globulin 4.1 H (2.6-4.0) g/dL Albumin/Globulin Ratio 0.9 (0.9-1.6) 06/08/19 06/08/19 06/08/19 Range/Units 10:39 17:03 17:17 WBC (4.0-11.0) K/uL RBC (4.50-5.90) M/uL Hgb (13.0-17.0) g/dL Hct (38.0-50.0) % MCV (80.0-98.0) fL MCH (27.0-32.0) pg MCHC (31.0-37.0) g/dL RDW Std Deviation (28.0-62.0) fl RDW Coeff of Adiel (11.0-15.0) % Plt Count (150-400) K/uL MPV (7.40-12.00) fL Neut % (Auto) (48.0-80.0) % Lymph % (Auto) (16.0-40.0) % [place] % (Auto) (0.0-15.0) % Eos % (Auto) (0.0-7.0) % Baso % (Auto) (0.0-1.5) % Neut # (Auto) (1.4-5.7) K/uL Lymph # (Auto) (0.6-2.4) K/uL [place] # (Auto) (0.0-0.8) K/uL Eos # (Auto) (0.0-0.7) K/uL Baso # (Auto) (0.0-0.1) K/uL Nucleated RBC % /100WBC Nucleated RBCs # K/uL INR Sodium (136-148) mmol/L Potassium (3.5-5.1) mmol/L Chloride (98-107) mmol/L Carbon Dioxide (21.0-32.0) mmol/L BUN (7.0-18.0) mg/dL Creatinine (0.8-1.3) mg/dL Est Cr Clr Drug Dosing mL/min Estimated GFR (MDRD) ml/min Glucose (74-106) mg/dL POC Glucose 92 (60-110) mg/dL Calcium (8.5-10.1) mg/dL Total Bilirubin (0.2-1.0) mg/dL AST (15-37) IU/L ALT (14-63) IU/L Alkaline Phosphatase (46-116) U/L Troponin I 0.053 (0.000-0.056) ng/mL B-Natriuretic Peptide 1070 H (<100) PG/ML Total Protein (6.4-8.2) g/dL Albumin (3.4-5.0) g/dL Globulin (2.6-4.0) g/dL Albumin/Globulin Ratio (0.9-1.6) Result Diagrams: 06/08/19 10:39 06/08/19 10:39 Orders Last 24hrs: Active Orders 24 hr Category Date Time Status Admission Status [Patient Status] [ADT] Stat ADT 06/08/19 12:46 Active Blood Glucose Check, Bedside [RC] TIDAC Care 06/08/19 14:14 Active Cardiac Monitoring [RC] . DIRECTED Care 06/08/19 10:14 Active Daily Weight [Height and Weight] [RC] DAILY Care 06/08/19 13:58 Active EKG Documentation Completion [RC] STAT Care 06/08/19 10:14 Active Intake and Output Strict [RC] ASDIRECTED Care 06/08/19 13:59 Active Oxygen Therapy [RC] PRN Care 06/08/19 13:57 Active RT Aerosol Therapy [RC] ASDIRECTED Care 06/08/19 10:50 Active Telemetry Monitoring [Cardiac Monitoring] [RC] . Care 06/08/19 14:01 Active DIRECTED Up ad Misty [RC] ASDIRECTED Care 06/08/19 13:57 Active VTE/DVT Education [RC] PER UNIT ROUTINE Care 06/08/19 13:57 Active Vital Signs [RC] Q4H Care 06/08/19 13:57 Active Consult to Diabetic Nurse Specialist [CONS] Routine Cons 06/08/19 14:14 Active 2 Gram Sodium Diet [DIET] Diet 06/08/19 Lunch Active Abdomen Ltd [US] Routine Exams 06/08/19 14:14 Taken Echo Comp wo Cont [US] Urgent Exams 06/08/19 14:00 Taken CBC WITH AUTO DIFF [HEME] AM Lab 06/09/19 05:11 Ordered COMPREHENSIVE METABOLIC PN,CMP [CHEM] AM Lab 06/09/19 05:11 Ordered HEPATITIS PANEL (4) [REF] Routine Lab 06/08/19 14:51 Received TROPONIN I [CHEM] Q6H Lab 06/08/19 22:30 Ordered Acetaminophen [Tylenol] Med 06/08/19 13:57 Active 650 mg PO Q4H PRN Albuterol [Ventolin HFA] Med 06/08/19 13:59 Active 0 gm INH Q4H PRN Enoxaparin [Lovenox] Med 06/08/19 14:00 Active 40 mg SUBCUT Q24H Insulin Aspart [NovoLOG] Med 06/08/19 17:00 Active See Protocol SUBCUT TIDAC Ondansetron [Zofran] Med 06/08/19 13:57 Active 4 mg IVPUSH Q4H PRN Sodium Chloride 0.9% [Saline Flush] Med 06/08/19 10:14 Active 10 ml FLUSH ASDIRECTED PRN Sodium Chloride 0.9% [Saline Flush] Med 06/08/19 10:14 Active 2.5 ml FLUSH ASDIRECTED PRN Saline Lock Insert [OM.PC] Stat Oth 06/08/19 10:14 Ordered Resuscitation Status Routine Resus Stat 06/08/19 13:57 Ordered Medication Orders Acetaminophen (Tylenol) 650 mg PO Q4H PRN PRN Reason: Pain (mild 1-3) Last Admin: 06/08/19 17:28 Dose: 650 mg Albuterol (Ventolin Hfa) 0 gm INH Q4H PRN PRN Reason: Dyspnea Enoxaparin Sodium (Lovenox) 40 mg SUBCUT Q24H [place] Last Admin: 06/08/19 16:45 Dose: 40 mg Insulin Aspart (Novolog) 0 unit SUBCUT TIDAC [place]; Protocol Last Admin: 06/08/19 17:23 Dose: Not Given Ondansetron HCl (Zofran) 4 mg IVPUSH Q4H PRN PRN Reason: Nausea Sodium Chloride (Saline Flush) 10 ml FLUSH ASDIRECTED PRN PRN Reason: Keep Vein Open Sodium Chloride (Saline Flush) 2.5 ml FLUSH ASDIRECTED PRN PRN Reason: Keep Vein Open
[2019-06-08] MEDS: Enoxaparin 40 MG/0.4 ML Syringe SUBCUT SCH (16:45)
[2019-06-08] MEDS: Insulin Aspart 100 Units/ML 3 ML Pen SUBCUT SCH (17:23)
--- NOTE | 2019-06-08 20:21 | US ---
INDICATION: Elevated LFTs TECHNIQUE: Ultrasound abdomen limited. Sonographic images of the right upper quadrant were obtained using hampton-scale and color Doppler images. COMPARISON: None FINDINGS: Liver: Increased echogenicity throughout the liver. The liver measures 17.4 cm. No masses. No intrahepatic biliary dilatation. Gallbladder: No stones or sludge. Normal wall thickness. No pericholecystic fluid. Sonographic Sykes`s sign is negative. Common bile duct: 2.3 mm. Pancreas: Suboptimally visualized. Right kidney: 10.4 x 4.9 x 6.9 cm. Normal echotexture and cortex. No masses, stones, or hydronephrosis. Vasculature: Suboptimally visualized. IMPRESSION: Normal gallbladder. Mild hepatomegaly. Hepatic steatosis. Suboptimal evaluation of the pancreas, aorta, and IVC due to overlying bowel gas. Dictated by Jolynn Baum MD @ Jun 08 2019 8:20PM Signed by Dr. Jolynn Baum @ Jun 08 2019 8:20PM
[2019-06-08] MEDS ORDERED: Enalaprilat 1.25 MG/ML SDV IVPUSH PRN (20:27)
[2019-06-09 05:56] LABS: CHLORIDE,CL 106 mmol/L (98-107); SODIUM,NA 141 mmol/L (136-148)
[2019-06-09] MEDS: Insulin Aspart 100 Units/ML 3 ML Pen SUBCUT SCH ×3 (07:49→17:49)
[2019-06-09] MEDS ORDERED: Furosemide 40 MG/4 ML VIAL IVPUSH ONE ×2 (08:00→08:45)
[2019-06-09] MEDS: Losartan 50 MG Tab PO SCH (08:44)
--- NOTE | 2019-06-09 09:14 | PCM.PN ---
<Lynda Woo M - Last Filed: 06/09/19 09:36> - General Info Date of Service: 06/09/19 Admission Dx/Problem (Free Text): Admission Diagnosis/Problem Admission Diagnosis/Problem CHF, Congestive heart failure Subjective Update: Feling much improved this morning. No chest pain. SOB is nearly gone. No palpitations or dizziness. Functional Status: Reports: Pain Controlled - Review of Systems General: Reports: No Symptoms. Denies: Fever, Weakness, Fatigue HEENT: Reports: No Symptoms. Denies: Headaches, Sore Throat, Visual Changes Pulmonary: Reports: Shortness of Breath (much improved. ). Denies: Cough Cardiovascular: Reports: Dyspnea on Exertion. Denies: Chest Pain, Palpitations , Orthopnea, Edema, Lightheadedness Gastrointestinal: Reports: No Symptoms. Denies: Abdominal Pain, Nausea, Vomiting Genitourinary: Reports: No Symptoms Musculoskeletal: Reports: No Symptoms Skin: Reports: No Symptoms Neurological: Reports: No Symptoms Psychiatric: Reports: No Symptoms - Patient Data Vitals - Most Recent: Last Vital Signs Temp 97.3 F 06/09/19 04:00 Pulse 89 06/09/19 05:32 Resp 20 06/09/19 04:47 BP 159/92 H 06/09/19 08:44 Pulse Ox 95 06/09/19 04:47 Weight - Most Recent: 234.5 kg I&O - Last 24 Hours: Intake & Output 06/08/19 06/09/19 06/09/19 22:59 06:59 14:59 Intake Total 700 240 Output Total 1970 Balance -1270 240 Lab Results Last 24 Hours: Laboratory Results - last 24 hr 06/08/19 06/08/19 06/08/19 Range/Units 10:39 10:39 10:39 WBC 7.83 (4.0-11.0) K/uL RBC 4.33 L (4.50-5.90) M/uL Hgb 12.8 L (13.0-17.0) g/dL Hct 38.9 (38.0-50.0) % MCV 89.8 (80.0-98.0) fL MCH 29.6 (27.0-32.0) pg MCHC 32.9 (31.0-37.0) g/dL RDW Std Deviation 50.0 (28.0-62.0) fl RDW Coeff of Adiel 15 (11.0-15.0) % Plt Count 182 (150-400) K/uL MPV 11.30 (7.40-12.00) fL Neut % (Auto) 67.7 (48.0-80.0) % Lymph % (Auto) 21.3 (16.0-40.0) % [place] % (Auto) 9.1 (0.0-15.0) % Eos % (Auto) 1.5 (0.0-7.0) % Baso % (Auto) 0.4 (0.0-1.5) % Neut # (Auto) 5.3 (1.4-5.7) K/uL Lymph # (Auto) 1.7 (0.6-2.4) K/uL [place] # (Auto) 0.7 (0.0-0.8) K/uL Eos # (Auto) 0.1 (0.0-0.7) K/uL Baso # (Auto) 0.0 (0.0-0.1) K/uL Nucleated RBC % 0.0 /100WBC Nucleated RBCs # 0 K/uL INR 1.24 Sodium 138 (136-148) mmol/L Potassium 4.0 (3.5-5.1) mmol/L Chloride 105 (98-107) mmol/L Carbon Dioxide 22.8 (21.0-32.0) mmol/L BUN 20 H (7.0-18.0) mg/dL Creatinine 0.9 (0.8-1.3) mg/dL Est Cr Clr Drug Dosing 86.19 mL/min Estimated GFR (MDRD) > 60.0 ml/min Glucose 136 H (74-106) mg/dL POC Glucose (60-110) mg/dL Calcium 9.0 (8.5-10.1) mg/dL Total Bilirubin 1.2 H (0.2-1.0) mg/dL AST 40 H (15-37) IU/L ALT 52 (14-63) IU/L Alkaline Phosphatase 64 (46-116) U/L Troponin I 0.057 H (0.000-0.056) ng/mL B-Natriuretic Peptide (<100) PG/ML Total Protein 7.6 (6.4-8.2) g/dL Albumin 3.5 (3.4-5.0) g/dL Globulin 4.1 H (2.6-4.0) g/dL Albumin/Globulin Ratio 0.9 (0.9-1.6) 06/08/19 06/08/19 06/08/19 Range/Units 10:39 17:03 17:17 WBC (4.0-11.0) K/uL RBC (4.50-5.90) M/uL Hgb (13.0-17.0) g/dL Hct (38.0-50.0) % MCV (80.0-98.0) fL MCH (27.0-32.0) pg MCHC (31.0-37.0) g/dL RDW Std Deviation (28.0-62.0) fl RDW Coeff of Adiel (11.0-15.0) % Plt Count (150-400) K/uL MPV (7.40-12.00) fL Neut % (Auto) (48.0-80.0) % Lymph % (Auto) (16.0-40.0) % [place] % (Auto) (0.0-15.0) % Eos % (Auto) (0.0-7.0) % Baso % (Auto) (0.0-1.5) % Neut # (Auto) (1.4-5.7) K/uL Lymph # (Auto) (0.6-2.4) K/uL [place] # (Auto) (0.0-0.8) K/uL Eos # (Auto) (0.0-0.7) K/uL Baso # (Auto) (0.0-0.1) K/uL Nucleated RBC % /100WBC Nucleated RBCs # K/uL INR Sodium (136-148) mmol/L Potassium (3.5-5.1) mmol/L Chloride (98-107) mmol/L Carbon Dioxide (21.0-32.0) mmol/L BUN (7.0-18.0) mg/dL Creatinine (0.8-1.3) mg/dL Est Cr Clr Drug Dosing mL/min Estimated GFR (MDRD) ml/min Glucose (74-106) mg/dL POC Glucose 92 (60-110) mg/dL Calcium (8.5-10.1) mg/dL Total Bilirubin (0.2-1.0) mg/dL AST (15-37) IU/L ALT (14-63) IU/L Alkaline Phosphatase (46-116) U/L Troponin I 0.053 (0.000-0.056) ng/mL B-Natriuretic Peptide 1070 H (<100) PG/ML Total Protein (6.4-8.2) g/dL Albumin (3.4-5.0) g/dL Globulin (2.6-4.0) g/dL Albumin/Globulin Ratio (0.9-1.6) 06/08/19 06/08/19 06/09/19 Range/Units 21:22 22:24 05:10 WBC 7.08 (4.0-11.0) K/uL RBC 4.32 L (4.50-5.90) M/uL Hgb 12.6 L (13.0-17.0) g/dL Hct 39.3 (38.0-50.0) % MCV 91.0 (80.0-98.0) fL MCH 29.2 (27.0-32.0) pg MCHC 32.1 (31.0-37.0) g/dL RDW Std Deviation 50.2 (28.0-62.0) fl RDW Coeff of Adiel 15 (11.0-15.0) % Plt Count 182 (150-400) K/uL MPV 11.20 (7.40-12.00) fL Neut % (Auto) 63.6 (48.0-80.0) % Lymph % (Auto) 24.9 (16.0-40.0) % [place] % (Auto) 8.6 (0.0-15.0) % Eos % (Auto) 2.5 (0.0-7.0) % Baso % (Auto) 0.4 (0.0-1.5) % Neut # (Auto) 4.5 (1.4-5.7) K/uL Lymph # (Auto) 1.8 (0.6-2.4) K/uL [place] # (Auto) 0.6 (0.0-0.8) K/uL Eos # (Auto) 0.2 (0.0-0.7) K/uL Baso # (Auto) 0.0 (0.0-0.1) K/uL Nucleated RBC % 0.0 /100WBC Nucleated RBCs # 0 K/uL INR Sodium (136-148) mmol/L Potassium (3.5-5.1) mmol/L Chloride (98-107) mmol/L Carbon Dioxide (21.0-32.0) mmol/L BUN (7.0-18.0) mg/dL Creatinine (0.8-1.3) mg/dL Est Cr Clr Drug Dosing mL/min Estimated GFR (MDRD) ml/min Glucose (74-106) mg/dL POC Glucose 102 (60-110) mg/dL Calcium (8.5-10.1) mg/dL Total Bilirubin (0.2-1.0) mg/dL AST (15-37) IU/L ALT (14-63) IU/L Alkaline Phosphatase (46-116) U/L Troponin I < 0.050 (0.000-0.056) ng/mL B-Natriuretic Peptide (<100) PG/ML Total Protein (6.4-8.2) g/dL Albumin (3.4-5.0) g/dL Globulin (2.6-4.0) g/dL Albumin/Globulin Ratio (0.9-1.6) 06/09/19 06/09/19 06/09/19 Range/Units 05:10 05:10 05:59 WBC (4.0-11.0) K/uL RBC (4.50-5.90) M/uL Hgb (13.0-17.0) g/dL Hct (38.0-50.0) % MCV (80.0-98.0) fL MCH (27.0-32.0) pg MCHC (31.0-37.0) g/dL RDW Std Deviation (28.0-62.0) fl RDW Coeff of Adiel (11.0-15.0) % Plt Count (150-400) K/uL MPV (7.40-12.00) fL Neut % (Auto) (48.0-80.0) % Lymph % (Auto) (16.0-40.0) % [place] % (Auto) (0.0-15.0) % Eos % (Auto) (0.0-7.0) % Baso % (Auto) (0.0-1.5) % Neut # (Auto) (1.4-5.7) K/uL Lymph # (Auto) (0.6-2.4) K/uL [place] # (Auto) (0.0-0.8) K/uL Eos # (Auto) (0.0-0.7) K/uL Baso # (Auto) (0.0-0.1) K/uL Nucleated RBC % /100WBC Nucleated RBCs # K/uL INR Sodium 141 (136-148) mmol/L Potassium 3.9 (3.5-5.1) mmol/L Chloride 106 (98-107) mmol/L Carbon Dioxide 27.3 (21.0-32.0) mmol/L BUN 15 (7.0-18.0) mg/dL Creatinine 0.9 (0.8-1.3) mg/dL Est Cr Clr Drug Dosing 86.19 mL/min Estimated GFR (MDRD) > 60.0 ml/min Glucose 97 (74-106) mg/dL POC Glucose 85 (60-110) mg/dL Calcium 8.4 L (8.5-10.1) mg/dL Total Bilirubin 1.6 H (0.2-1.0) mg/dL AST 43 H (15-37) IU/L ALT 51 (14-63) IU/L Alkaline Phosphatase 59 (46-116) U/L Troponin I (0.000-0.056) ng/mL B-Natriuretic Peptide 684 H (<100) PG/ML Total Protein 7.5 (6.4-8.2) g/dL Albumin 3.4 (3.4-5.0) g/dL Globulin 4.1 H (2.6-4.0) g/dL Albumin/Globulin Ratio 0.8 L (0.9-1.6) Med Orders - Current: Current Medications Acetaminophen (Tylenol) 650 mg PO Q4H PRN PRN Reason: Pain (mild 1-3) Last Admin: 06/08/19 17:28 Dose: 650 mg Albuterol (Ventolin Hfa) 0 gm INH Q4H PRN PRN Reason: Dyspnea Enalaprilat (Vasotec Iv) 1.25 mg IVPUSH Q6H PRN PRN Reason: Hypertension Last Admin: 06/09/19 04:32 Dose: 1.25 mg Enoxaparin Sodium (Lovenox) 40 mg SUBCUT Q24H [facility] Last Admin: 06/08/19 16:45 Dose: 40 mg Insulin Aspart (Novolog) 0 unit SUBCUT TIDAC [facility]; Protocol Last Admin: 06/09/19 07:49 Dose: Not Given Losartan Potassium (Cozaar) 25 mg PO DAILY [facility] Last Admin: 06/09/19 08:44 Dose: 25 mg Ondansetron HCl (Zofran) 4 mg IVPUSH Q4H PRN PRN Reason: Nausea Sodium Chloride (Saline Flush) 10 ml FLUSH ASDIRECTED PRN PRN Reason: Keep Vein Open Sodium Chloride (Saline Flush) 2.5 ml FLUSH ASDIRECTED PRN PRN Reason: Keep Vein Open Discontinued Medications Albuterol/Ipratropium (Duoneb 3.0-0.5 Mg/3 Ml) 3 ml NEB ONETIME ONE Stop: 06/08/19 10:51 Last Admin: 06/08/19 11:17 Dose: 3 ml Furosemide (Lasix) 40 mg IVPUSH NOW ONE Stop: 06/08/19 14:00 Last Admin: 06/08/19 16:22 Dose: Not Given Furosemide (Lasix) 40 mg IVPUSH NOW ONE Stop: 06/08/19 16:16 Last Admin: 06/08/19 16:46 Dose: 40 mg Furosemide (Lasix) 40 mg IVPUSH NOW ONE Stop: 06/09/19 08:01 Last Admin: 06/09/19 08:44 Dose: 40 mg Furosemide (Lasix) 40 mg IVPUSH NOW ONE Stop: 06/09/19 08:46 Last Admin: 06/09/19 08:45 Dose: Not Given - Exam General: Alert, Oriented Neck: Supple Lungs: Clear to Auscultation, Normal Respiratory Effort Cardiovascular: Regular Rate, Regular Rhythm GI/Abdominal Exam: Normal Bowel Sounds, Soft, Non-Tender Extremities: Normal Inspection, Normal Range of Motion, Non-Tender, No Pedal Edema Neurological: No New Focal Deficit Psy/Mental Status: Alert, Normal Affect, Normal Mood - Problem List & Annotations (1) CHF (congestive heart failure) SNOMED Code(s): 43906317 Code(s): I50.9 - HEART FAILURE, UNSPECIFIED Status: Acute Current Visit: Yes Qualifiers: Heart failure type: unspecified Heart failure chronicity: acute Qualified Code(s): I50.9 - Heart failure, unspecified (2) Dyspnea SNOMED Code(s): 489199929 Code(s): R06.00 - DYSPNEA, UNSPECIFIED Status: Acute Current Visit: Yes Qualifiers: Dyspnea type: shortness of breath Qualified Code(s): R06.02 - Shortness of breath; R06.00 - Dyspnea, unspecified; R06.01 - Orthopnea (3) DM type 2 (diabetes mellitus, type 2) SNOMED Code(s): 86133691 Code(s): E11.9 - TYPE 2 DIABETES MELLITUS WITHOUT COMPLICATIONS Status: Chronic Current Visit: Yes Qualifiers: Diabetes mellitus exterminator helper termite insulin use: without exterminator helper termite use Diabetes mellitus complication status: without complication Qualified Code(s): E11.9 - Type 2 diabetes mellitus without complications (4) Hypertension SNOMED Code(s): 46894888 Code(s): I10 - ESSENTIAL (PRIMARY) HYPERTENSION Status: Chronic Current Visit: No Qualifiers: Hypertension type: essential hypertension Qualified Code(s): I10 - Essential (primary) hypertension (5) Lightheadedness SNOMED Code(s): 101180384 Code(s): R42 - DIZZINESS AND GIDDINESS Status: Acute Current Visit: Yes - Problem List Review Problem List Initiated/Reviewed/Updated: Yes - My Orders Last 24 Hours: My Active Orders 06/08/19 13:57 Oxygen Therapy [RC] PRN Up ad Misty [RC] ASDIRECTED VTE/DVT Education [RC] PER UNIT ROUTINE Vital Signs [RC] Q4H Acetaminophen [Tylenol] 650 mg PO Q4H PRN Ondansetron [Zofran] 4 mg IVPUSH Q4H PRN Resuscitation Status Routine 06/08/19 13:58 Daily Weight [Height and Weight] [RC] DAILY 06/08/19 13:59 Intake and Output Strict [RC] Q12H Albuterol [Ventolin HFA] 0 gm INH Q4H PRN 06/08/19 14:00 Echo Comp wo Cont [US] Urgent Enoxaparin [Lovenox] 40 mg SUBCUT Q24H 06/08/19 14:01 Telemetry Monitoring [Cardiac Monitoring] [RC] . DIRECTED 06/08/19 14:14 Blood Glucose Check, Bedside [RC] TIDAC Consult to Diabetic Nurse Specialist [CONS] Routine 06/08/19 14:51 HEPATITIS PANEL (4) [REF] Routine 06/08/19 17:00 Insulin Aspart [NovoLOG] See Protocol SUBCUT TIDAC 06/08/19 Lunch 2 Gram Sodium Diet [DIET] 06/09/19 09:00 Losartan [Cozaar] 25 mg PO DAILY - Plan Plan:: This 63 year old male admitted with dyspnea secondary due to suspected CHF 1. CHF: No hx of. ECHO pending. Lasix 40 mg gave improvement to SOB. Give one more dose this morning and monitor. Strict I/O, daily weights. Low Na diet. Early this morning, extreme bradycardia noted on tele for 20 secs, possible heart block was noted. EKG was done, but he had returned to . Will set up for [facility] for home monitoring. Will keep today to monitor one more day on telemetry due to hx of lightheadedness. 2. HTN: Stable. Restart Losartan and as BP is elevated. 3. DM Type 2: Continue Novolog SSI and consult DM educator. DC home on Metformin. 4. Elevated Bili and AST: RUQ US revelaed steatosis. Hepatitis panel pending. VTE prophylaxis: Lovenox. Dispo: 1-2 days pending improvement. <Johnnie Granados - Last Filed: 06/09/19 10:46> - General Info Admission Dx/Problem (Free Text): I have examined the patient independently of Lynda Woo CNP. I have discussed the case with her. I have reviewed and agree with the examination and plan as outlined by her. Please see orders. Dr. Laurent, cardiology, was consulted for 3rd degree block and recommended holter monitor for now. - Patient Data Vitals - Most Recent: Last Vital Signs Temp 36.2 C 06/09/19 09:00 Pulse 96 06/09/19 09:00 Resp 17 06/09/19 09:00 BP 159/92 H 06/09/19 09:00 Pulse Ox 97 06/09/19 09:00 I&O - Last 24 Hours: Intake & Output 06/08/19 06/09/19 06/09/19 22:59 06:59 14:59 Intake Total 700 240 Output Total 1970 Balance -1270 240 Lab Results Last 24 Hours: Laboratory Results - last 24 hr 06/08/19 06/08/19 06/08/19 Range/Units 10:39 10:39 10:39 WBC 7.83 (4.0-11.0) K/uL RBC 4.33 L (4.50-5.90) M/uL Hgb 12.8 L (13.0-17.0) g/dL Hct 38.9 (38.0-50.0) % MCV 89.8 (80.0-98.0) fL MCH 29.6 (27.0-32.0) pg MCHC 32.9 (31.0-37.0) g/dL RDW Std Deviation 50.0 (28.0-62.0) fl RDW Coeff of Adiel 15 (11.0-15.0) % Plt Count 182 (150-400) K/uL MPV 11.30 (7.40-12.00) fL Neut % (Auto) 67.7 (48.0-80.0) % Lymph % (Auto) 21.3 (16.0-40.0) % [place] % (Auto) 9.1 (0.0-15.0) % Eos % (Auto) 1.5 (0.0-7.0) % Baso % (Auto) 0.4 (0.0-1.5) % Neut # (Auto) 5.3 (1.4-5.7) K/uL Lymph # (Auto) 1.7 (0.6-2.4) K/uL [place] # (Auto) 0.7 (0.0-0.8) K/uL Eos # (Auto) 0.1 (0.0-0.7) K/uL Baso # (Auto) 0.0 (0.0-0.1) K/uL Nucleated RBC % 0.0 /100WBC Nucleated RBCs # 0 K/uL INR 1.24 Sodium 138 (136-148) mmol/L Potassium 4.0 (3.5-5.1) mmol/L Chloride 105 (98-107) mmol/L Carbon Dioxide 22.8 (21.0-32.0) mmol/L BUN 20 H (7.0-18.0) mg/dL Creatinine 0.9 (0.8-1.3) mg/dL Est Cr Clr Drug Dosing 86.19 mL/min Estimated GFR (MDRD) > 60.0 ml/min Glucose 136 H (74-106) mg/dL POC Glucose (60-110) mg/dL Calcium 9.0 (8.5-10.1) mg/dL Magnesium (1.8-2.4) mg/dL Total Bilirubin 1.2 H (0.2-1.0) mg/dL AST 40 H (15-37) IU/L ALT 52 (14-63) IU/L Alkaline Phosphatase 64 (46-116) U/L Troponin I 0.057 H (0.000-0.056) ng/mL B-Natriuretic Peptide (<100) PG/ML Total Protein 7.6 (6.4-8.2) g/dL Albumin 3.5 (3.4-5.0) g/dL Globulin 4.1 H (2.6-4.0) g/dL Albumin/Globulin Ratio 0.9 (0.9-1.6) 06/08/19 06/08/19 06/08/19 Range/Units 10:39 17:03 17:17 WBC (4.0-11.0) K/uL RBC (4.50-5.90) M/uL Hgb (13.0-17.0) g/dL Hct (38.0-50.0) % MCV (80.0-98.0) fL MCH (27.0-32.0) pg MCHC (31.0-37.0) g/dL RDW Std Deviation (28.0-62.0) fl RDW Coeff of Adiel (11.0-15.0) % Plt Count (150-400) K/uL MPV (7.40-12.00) fL Neut % (Auto) (48.0-80.0) % Lymph % (Auto) (16.0-40.0) % [place] % (Auto) (0.0-15.0) % Eos % (Auto) (0.0-7.0) % Baso % (Auto) (0.0-1.5) % Neut # (Auto) (1.4-5.7) K/uL Lymph # (Auto) (0.6-2.4) K/uL [place] # (Auto) (0.0-0.8) K/uL Eos # (Auto) (0.0-0.7) K/uL Baso # (Auto) (0.0-0.1) K/uL Nucleated RBC % /100WBC Nucleated RBCs # K/uL INR Sodium (136-148) mmol/L Potassium (3.5-5.1) mmol/L Chloride (98-107) mmol/L Carbon Dioxide (21.0-32.0) mmol/L BUN (7.0-18.0) mg/dL Creatinine (0.8-1.3) mg/dL Est Cr Clr Drug Dosing mL/min Estimated GFR (MDRD) ml/min Glucose (74-106) mg/dL POC Glucose 92 (60-110) mg/dL Calcium (8.5-10.1) mg/dL Magnesium (1.8-2.4) mg/dL Total Bilirubin (0.2-1.0) mg/dL AST (15-37) IU/L ALT (14-63) IU/L Alkaline Phosphatase (46-116) U/L Troponin I 0.053 (0.000-0.056) ng/mL B-Natriuretic Peptide 1070 H (<100) PG/ML Total Protein (6.4-8.2) g/dL Albumin (3.4-5.0) g/dL Globulin (2.6-4.0) g/dL Albumin/Globulin Ratio (0.9-1.6) 06/08/19 06/08/19 06/09/19 Range/Units 21:22 22:24 05:10 WBC 7.08 (4.0-11.0) K/uL RBC 4.32 L (4.50-5.90) M/uL Hgb 12.6 L (13.0-17.0) g/dL Hct 39.3 (38.0-50.0) % MCV 91.0 (80.0-98.0) fL MCH 29.2 (27.0-32.0) pg MCHC 32.1 (31.0-37.0) g/dL RDW Std Deviation 50.2 (28.0-62.0) fl RDW Coeff of Adiel 15 (11.0-15.0) % Plt Count 182 (150-400) K/uL MPV 11.20 (7.40-12.00) fL Neut % (Auto) 63.6 (48.0-80.0) % Lymph % (Auto) 24.9 (16.0-40.0) % [place] % (Auto) 8.6 (0.0-15.0) % Eos % (Auto) 2.5 (0.0-7.0) % Baso % (Auto) 0.4 (0.0-1.5) % Neut # (Auto) 4.5 (1.4-5.7) K/uL Lymph # (Auto) 1.8 (0.6-2.4) K/uL [place] # (Auto) 0.6 (0.0-0.8) K/uL Eos # (Auto) 0.2 (0.0-0.7) K/uL Baso # (Auto) 0.0 (0.0-0.1) K/uL Nucleated RBC % 0.0 /100WBC Nucleated RBCs # 0 K/uL INR Sodium (136-148) mmol/L Potassium (3.5-5.1) mmol/L Chloride (98-107) mmol/L Carbon Dioxide (21.0-32.0) mmol/L BUN (7.0-18.0) mg/dL Creatinine (0.8-1.3) mg/dL Est Cr Clr Drug Dosing mL/min Estimated GFR (MDRD) ml/min Glucose (74-106) mg/dL POC Glucose 102 (60-110) mg/dL Calcium (8.5-10.1) mg/dL Magnesium (1.8-2.4) mg/dL Total Bilirubin (0.2-1.0) mg/dL AST (15-37) IU/L ALT (14-63) IU/L Alkaline Phosphatase (46-116) U/L Troponin I < 0.050 (0.000-0.056) ng/mL B-Natriuretic Peptide (<100) PG/ML Total Protein (6.4-8.2) g/dL Albumin (3.4-5.0) g/dL Globulin (2.6-4.0) g/dL Albumin/Globulin Ratio (0.9-1.6) 06/09/19 06/09/19 06/09/19 Range/Units 05:10 05:10 05:10 WBC (4.0-11.0) K/uL RBC (4.50-5.90) M/uL Hgb (13.0-17.0) g/dL Hct (38.0-50.0) % MCV (80.0-98.0) fL MCH (27.0-32.0) pg MCHC (31.0-37.0) g/dL RDW Std Deviation (28.0-62.0) fl RDW Coeff of Adiel (11.0-15.0) % Plt Count (150-400) K/uL MPV (7.40-12.00) fL Neut % (Auto) (48.0-80.0) % Lymph % (Auto) (16.0-40.0) % [place] % (Auto) (0.0-15.0) % Eos % (Auto) (0.0-7.0) % Baso % (Auto) (0.0-1.5) % Neut # (Auto) (1.4-5.7) K/uL Lymph # (Auto) (0.6-2.4) K/uL [place] # (Auto) (0.0-0.8) K/uL Eos # (Auto) (0.0-0.7) K/uL Baso # (Auto) (0.0-0.1) K/uL Nucleated RBC % /100WBC Nucleated RBCs # K/uL INR Sodium 141 (136-148) mmol/L Potassium 3.9 (3.5-5.1) mmol/L Chloride 106 (98-107) mmol/L Carbon Dioxide 27.3 (21.0-32.0) mmol/L BUN 15 (7.0-18.0) mg/dL Creatinine 0.9 (0.8-1.3) mg/dL Est Cr Clr Drug Dosing 86.19 mL/min Estimated GFR (MDRD) > 60.0 ml/min Glucose 97 (74-106) mg/dL POC Glucose (60-110) mg/dL Calcium 8.4 L (8.5-10.1) mg/dL Magnesium 1.9 (1.8-2.4) mg/dL Total Bilirubin 1.6 H (0.2-1.0) mg/dL AST 43 H (15-37) IU/L ALT 51 (14-63) IU/L Alkaline Phosphatase 59 (46-116) U/L Troponin I (0.000-0.056) ng/mL B-Natriuretic Peptide 684 H (<100) PG/ML Total Protein 7.5 (6.4-8.2) g/dL Albumin 3.4 (3.4-5.0) g/dL Globulin 4.1 H (2.6-4.0) g/dL Albumin/Globulin Ratio 0.8 L (0.9-1.6) 06/09/19 Range/Units 05:59 WBC (4.0-11.0) K/uL RBC (4.50-5.90) M/uL Hgb (13.0-17.0) g/dL Hct (38.0-50.0) % MCV (80.0-98.0) fL MCH (27.0-32.0) pg MCHC (31.0-37.0) g/dL RDW Std Deviation (28.0-62.0) fl RDW Coeff of Adiel (11.0-15.0) % Plt Count (150-400) K/uL MPV (7.40-12.00) fL Neut % (Auto) (48.0-80.0) % Lymph % (Auto) (16.0-40.0) % [place] % (Auto) (0.0-15.0) % Eos % (Auto) (0.0-7.0) % Baso % (Auto) (0.0-1.5) % Neut # (Auto) (1.4-5.7) K/uL Lymph # (Auto) (0.6-2.4) K/uL [place] # (Auto) (0.0-0.8) K/uL Eos # (Auto) (0.0-0.7) K/uL Baso # (Auto) (0.0-0.1) K/uL Nucleated RBC % /100WBC Nucleated RBCs # K/uL INR Sodium (136-148) mmol/L Potassium (3.5-5.1) mmol/L Chloride (98-107) mmol/L Carbon Dioxide (21.0-32.0) mmol/L BUN (7.0-18.0) mg/dL Creatinine (0.8-1.3) mg/dL Est Cr Clr Drug Dosing mL/min Estimated GFR (MDRD) ml/min Glucose (74-106) mg/dL POC Glucose 85 (60-110) mg/dL Calcium (8.5-10.1) mg/dL Magnesium (1.8-2.4) mg/dL Total Bilirubin (0.2-1.0) mg/dL AST (15-37) IU/L ALT (14-63) IU/L Alkaline Phosphatase (46-116) U/L Troponin I (0.000-0.056) ng/mL B-Natriuretic Peptide (<100) PG/ML Total Protein (6.4-8.2) g/dL Albumin (3.4-5.0) g/dL Globulin (2.6-4.0) g/dL Albumin/Globulin Ratio (0.9-1.6) Med Orders - Current: Current Medications Acetaminophen (Tylenol) 650 mg PO Q4H PRN PRN Reason: Pain (mild 1-3) Last Admin: 06/08/19 17:28 Dose: 650 mg Albuterol (Ventolin Hfa) 0 gm INH Q4H PRN PRN Reason: Dyspnea Enalaprilat (Vasotec Iv) 1.25 mg IVPUSH Q6H PRN PRN Reason: Hypertension Last Admin: 06/09/19 04:32 Dose: 1.25 mg Enoxaparin Sodium (Lovenox) 40 mg SUBCUT Q24H [facility] Last Admin: 06/08/19 16:45 Dose: 40 mg Insulin Aspart (Novolog) 0 unit SUBCUT TIDAC [facility]; Protocol Last Admin: 06/09/19 07:49 Dose: Not Given Losartan Potassium (Cozaar) 25 mg PO DAILY [facility] Last Admin: 06/09/19 08:44 Dose: 25 mg Ondansetron HCl (Zofran) 4 mg IVPUSH Q4H PRN PRN Reason: Nausea Sodium Chloride (Saline Flush) 10 ml FLUSH ASDIRECTED PRN PRN Reason: Keep Vein Open Sodium Chloride (Saline Flush) 2.5 ml FLUSH ASDIRECTED PRN PRN Reason: Keep Vein Open Discontinued Medications Albuterol/Ipratropium (Duoneb 3.0-0.5 Mg/3 Ml) 3 ml NEB ONETIME ONE Stop: 06/08/19 10:51 Last Admin: 06/08/19 11:17 Dose: 3 ml Furosemide (Lasix) 40 mg IVPUSH NOW ONE Stop: 06/08/19 14:00 Last Admin: 06/08/19 16:22 Dose: Not Given Furosemide (Lasix) 40 mg IVPUSH NOW ONE Stop: 06/08/19 16:16 Last Admin: 06/08/19 16:46 Dose: 40 mg Furosemide (Lasix) 40 mg IVPUSH NOW ONE Stop: 06/09/19 08:01 Last Admin: 06/09/19 08:44 Dose: 40 mg Furosemide (Lasix) 40 mg IVPUSH NOW ONE Stop: 06/09/19 08:46 Last Admin: 06/09/19 08:45 Dose: Not Given - My Orders Last 24 Hours: My Active Orders 06/08/19 20:27 Enalaprilat [Vasotec IV] 1.25 mg IVPUSH Q6H PRN 06/09/19 06:10 EKG 12 Lead [EKG Documentation Completion] [RC] STAT
--- NOTE | 2019-06-09 10:16 | PCM.SN ---
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 I was able to send him the images of the telemetry strip. He reviewed them and felt pacemaker was not urgent at this time. patient was asymptomatic and sleeping during the event. he recommended follow up with Cardiology and to place a telemetry monitor on discharge to further evaluate. I also spoke with Dr Laurent regarding ECHO findings, which images are suboptimal. Some LV dysfunction noted but unable to be fully evaluated. Small pericardial effusion noted without cardiac tamponade.. He had no further recommendations. Discussed with Dr Granados. Will monitor patient today on telemetry. Check ESR, CRP to rule out pericarditis. Set up for ZIO patch upon discharge and follow up with Dr Cunningham. <Johnnie Granados M - Last Filed: 06/09/19 10:46> - Free Text/Narrative Note: I have examined the patient independently of Lynda Woo CNP. I have discussed the case with her. I have reviewed and agree with the examination and plan as outlined by her. Please see orders.
[2019-06-09] MEDS: Enoxaparin 40 MG/0.4 ML Syringe SUBCUT SCH (14:06)
[2019-06-10 06:13] LABS: CHLORIDE,CL 105 mmol/L (98-107); SODIUM,NA 143 mmol/L (136-148)
[2019-06-10] MEDS: Insulin Aspart 100 Units/ML 3 ML Pen SUBCUT SCH (07:16)
[2019-06-10] MEDS: Losartan 50 MG Tab PO SCH (09:20)
--- NOTE | 2019-06-10 10:45 | PCM.DCSUM1 ---
Discharge Summary - Hospital Course HPI Initial Comments: the patient was admitted initially for shortness of breath and congestive heart failure. Diagnosis: Stroke: No - Discharge Data Discharge Date: 06/10/19 Discharge Disposition: Home, Self-Care 01 Condition: Good - Discharge Diagnosis/Problem(s) (1) CHF (congestive heart failure) SNOMED Code(s): 48438036 ICD Code: I50.9 - HEART FAILURE, UNSPECIFIED Status: Chronic Qualifiers: Heart failure type: unspecified Heart failure chronicity: acute Qualified Code(s): I50.9 - Heart failure, unspecified (2) Dyspnea SNOMED Code(s): 210959984 ICD Code: R06.00 - DYSPNEA, UNSPECIFIED Status: Chronic Priority: High Qualifiers: Dyspnea type: shortness of breath Qualified Code(s): R06.02 - Shortness of breath; R06.00 - Dyspnea, unspecified; R06.01 - Orthopnea (3) DM type 2 (diabetes mellitus, type 2) SNOMED Code(s): 25439828 ICD Code: E11.9 - TYPE 2 DIABETES MELLITUS WITHOUT COMPLICATIONS Status: Chronic Priority: High Qualifiers: Diabetes mellitus residential insulin use: without machine long goods helper use Diabetes mellitus complication status: without complication Qualified Code(s): E11.9 - Type 2 diabetes mellitus without complications (4) Hypertension SNOMED Code(s): 77827315 ICD Code: I10 - ESSENTIAL (PRIMARY) HYPERTENSION Status: Chronic Qualifiers: Hypertension type: essential hypertension Qualified Code(s): I10 - Essential (primary) hypertension - Patient Summary/Data Consults: Consultations 06/08/19 14:14 Consult to Diabetic Nurse Specialist [CONS] Routine Hospital Course: The patient is a 63-year-old gentleman who had presented to the emergency department complaining primarily of shortness of breath. The patient had a dry cough and he had been changed from lisinopril to losartan. Patient also noted that he had some swelling in his feet and ankles. The patient then was admitted out of concern for new onset congestive heart failure. The patient had been ordered diuretics and it improves with this. Chest x-ray that was obtained on June 08, 2019 showed mild cardiomegaly with trace right pleural effusion. Initially the patient also was noted to have a B-type natriuretic peptide at 1070 pg/mL. With diuretics this had improved significantly to 684 pg/mL. The patient's breathing also had improved. During the short course of hospitalization the patient had continued to improve. Initially it was noted that his AST was slightly elevated and hepatitis panel had been obtained. The patient's hepatitis panel was positive for hepatitis C antibodies at greater than 11.0 with normal being 0.9. The results of this were reported after the patient had already been discharged. The patient should follow-up with his primary care physician for this. During hospitalization the patient was noted on telemetry to have nonsustained episodes of what appeared to be third-degree heart block. Discussion was held [facility] after 2 -D echocardiogram was also obtained. It was noted that the 2-D echo was suboptimal and therefore cannot be relied on to consider ejection fraction. It was recommended that the patient follow-up with cardiology and he be placed on a seal ZIO patch in order to monitor his heart rate for instances of heart block. The patient also has been recommended to continue with his diet as tolerated. He is also to have activity as tolerated. The patient also was discharged on furosemide and replacement potassium in addition to his regular medications. The patient has been hemodynamically stable and he has been discharged from acute hospitalization with the recommendations listed above. - Patient Instructions Diet: Heart Healthy Diet Fluid Restriction: 1500 mL Activity: As Tolerated Notify Provider of: Fever, Increased Pain, Swelling and Redness - Discharge Plan *PRESCRIPTION DRUG MONITORING PROGRAM REVIEWED*: No *COPY OF PRESCRIPTION DRUG MONITORING REPORT IN PATIENT [place]: No Prescriptions/Med Rec: Furosemide [Lasix] 40 mg PO DAILY #30 tablet Potassium Citrate [Potassium Citrate ER] 5 meq PO DAILY #30 tablet.er Home Medications: Home Meds Albuterol [Ventolin HFA] 1 - 2 puff INH Q4H PRN 02/28/19 [History] Losartan Potassium 25 mg PO DAILY 06/08/19 [History] Furosemide [Lasix] 40 mg PO DAILY #30 tablet 06/10/19 [Rx] Potassium Citrate [Potassium Citrate ER] 5 meq PO DAILY #30 tablet.er 06/10/19 [ Rx] Oxygen Therapy Mode: Room Air Patient Handouts: Furosemide tablets, Shortness of Breath, Adult, [id number] , Potassium Citrate Extended-Release Tablets, Heart Failure, [id number] Referrals: Marshal Cunningham MD [Physician] - 07/08/19 11:00 am Laura Saba NP [Nurse Practitioner] - 06/29/19 8:30 am - Discharge Summary/Plan Comment DC Time >30 min.: Yes - General Info Date of Service: 06/10/19 Admission Dx/Problem (Free Text: The patient was admitted secondary to likely new onset CHF, hypoxia and shortness of breath. Subjective Update: Feling much improved this morning. No chest pain. SOB is nearly gone. No palpitations or dizziness. Functional Status: Reports: Pain Controlled - Review of Systems General: Reports: No Symptoms HEENT: Reports: No Symptoms Pulmonary: Reports: No Symptoms Cardiovascular: Reports: No Symptoms Gastrointestinal: Reports: No Symptoms Genitourinary: Reports: No Symptoms Musculoskeletal: Reports: No Symptoms Skin: Reports: No Symptoms Neurological: Reports: No Symptoms Psychiatric: Reports: No Symptoms - Patient Data Vitals - Most Recent: Last Vital Signs Temp 36.1 C 06/10/19 08:00 Pulse 98 06/10/19 08:00 Resp 18 06/10/19 08:00 BP 139/86 06/10/19 09:20 Pulse Ox 95 06/10/19 08:00 Weight - Most Recent: 103.646 kg I&O - Last 24 hours: Intake & Output 06/09/19 06/10/19 06/10/19 22:59 06:59 14:59 Intake Total 1360 720 Output Total 1700 500 Balance -340 220 Lab Results - Last 24 hrs: Laboratory Results - last 24 hr 06/09/19 06/09/19 06/09/19 Range/Units 10:32 10:32 12:00 WBC (4.0-11.0) K/uL RBC (4.50-5.90) M/uL Hgb (13.0-17.0) g/dL Hct (38.0-50.0) % MCV (80.0-98.0) fL MCH (27.0-32.0) pg MCHC (31.0-37.0) g/dL RDW Std Deviation (28.0-62.0) fl RDW Coeff of Adiel (11.0-15.0) % Plt Count (150-400) K/uL MPV (7.40-12.00) fL Neut % (Auto) (48.0-80.0) % Lymph % (Auto) (16.0-40.0) % Patrick % (Auto) (0.0-15.0) % Eos % (Auto) (0.0-7.0) % Baso % (Auto) (0.0-1.5) % Neut # (Auto) (1.4-5.7) K/uL Lymph # (Auto) (0.6-2.4) K/uL Patrick # (Auto) (0.0-0.8) K/uL Eos # (Auto) (0.0-0.7) K/uL Baso # (Auto) (0.0-0.1) K/uL Nucleated RBC % /100WBC Nucleated RBCs # K/uL ESR 20 H (0-19) mm/hr Sodium (136-148) mmol/L Potassium (3.5-5.1) mmol/L Chloride (98-107) mmol/L Carbon Dioxide (21.0-32.0) mmol/L BUN (7.0-18.0) mg/dL Creatinine (0.8-1.3) mg/dL Est Cr Clr Drug Dosing mL/min Estimated GFR (MDRD) ml/min Glucose (74-106) mg/dL POC Glucose 99 (60-110) mg/dL Calcium (8.5-10.1) mg/dL C-Reactive Protein 0.70 (0.00-0.90) mg/dL 06/09/19 06/09/19 06/10/19 Range/Units 16:02 21:17 05:10 WBC 7.72 (4.0-11.0) K/uL RBC 4.58 (4.50-5.90) M/uL Hgb 13.1 (13.0-17.0) g/dL Hct 41.4 (38.0-50.0) % MCV 90.4 (80.0-98.0) fL MCH 28.6 (27.0-32.0) pg MCHC 31.6 (31.0-37.0) g/dL RDW Std Deviation 49.1 (28.0-62.0) fl RDW Coeff of Adiel 15 (11.0-15.0) % Plt Count 198 (150-400) K/uL MPV 12.10 H (7.40-12.00) fL Neut % (Auto) 60.9 (48.0-80.0) % Lymph % (Auto) 24.9 (16.0-40.0) % Patrick % (Auto) 11.0 (0.0-15.0) % Eos % (Auto) 2.8 (0.0-7.0) % Baso % (Auto) 0.4 (0.0-1.5) % Neut # (Auto) 4.7 (1.4-5.7) K/uL Lymph # (Auto) 1.9 (0.6-2.4) K/uL Patrick # (Auto) 0.9 H (0.0-0.8) K/uL Eos # (Auto) 0.2 (0.0-0.7) K/uL Baso # (Auto) 0.0 (0.0-0.1) K/uL Nucleated RBC % 0.0 /100WBC Nucleated RBCs # 0 K/uL ESR (0-19) mm/hr Sodium (136-148) mmol/L Potassium (3.5-5.1) mmol/L Chloride (98-107) mmol/L Carbon Dioxide (21.0-32.0) mmol/L BUN (7.0-18.0) mg/dL Creatinine (0.8-1.3) mg/dL Est Cr Clr Drug Dosing mL/min Estimated GFR (MDRD) ml/min Glucose (74-106) mg/dL POC Glucose 97 98 (60-110) mg/dL Calcium (8.5-10.1) mg/dL C-Reactive Protein (0.00-0.90) mg/dL 06/10/19 06/10/19 Range/Units 05:10 06:52 WBC (4.0-11.0) K/uL RBC (4.50-5.90) M/uL Hgb (13.0-17.0) g/dL Hct (38.0-50.0) % MCV (80.0-98.0) fL MCH (27.0-32.0) pg MCHC (31.0-37.0) g/dL RDW Std Deviation (28.0-62.0) fl RDW Coeff of Adiel (11.0-15.0) % Plt Count (150-400) K/uL MPV (7.40-12.00) fL Neut % (Auto) (48.0-80.0) % Lymph % (Auto) (16.0-40.0) % Patrick % (Auto) (0.0-15.0) % Eos % (Auto) (0.0-7.0) % Baso % (Auto) (0.0-1.5) % Neut # (Auto) (1.4-5.7) K/uL Lymph # (Auto) (0.6-2.4) K/uL Patrick # (Auto) (0.0-0.8) K/uL Eos # (Auto) (0.0-0.7) K/uL Baso # (Auto) (0.0-0.1) K/uL Nucleated RBC % /100WBC Nucleated RBCs # K/uL ESR (0-19) mm/hr Sodium 143 (136-148) mmol/L Potassium 3.9 (3.5-5.1) mmol/L Chloride 105 (98-107) mmol/L Carbon Dioxide 27.6 (21.0-32.0) mmol/L BUN 16 (7.0-18.0) mg/dL Creatinine 0.9 (0.8-1.3) mg/dL Est Cr Clr Drug Dosing 86.19 mL/min Estimated GFR (MDRD) > 60.0 ml/min Glucose 106 (74-106) mg/dL POC Glucose 98 (60-110) mg/dL Calcium 8.7 (8.5-10.1) mg/dL C-Reactive Protein (0.00-0.90) mg/dL Med Orders - Current: Current Medications Acetaminophen (Tylenol) 650 mg PO Q4H PRN PRN Reason: Pain (mild 1-3) Last Admin: 06/08/19 17:28 Dose: 650 mg Albuterol (Ventolin Hfa) 0 gm INH Q4H PRN PRN Reason: Dyspnea Enalaprilat (Vasotec Iv) 1.25 mg IVPUSH Q6H PRN PRN Reason: Hypertension Last Admin: 06/09/19 04:32 Dose: 1.25 mg Enoxaparin Sodium (Lovenox) 40 mg SUBCUT Q24H [facility] Last Admin: 06/09/19 14:06 Dose: 40 mg Insulin Aspart (Novolog) 0 unit SUBCUT TIDAC [facility]; Protocol Last Admin: 06/10/19 07:16 Dose: Not Given Losartan Potassium (Cozaar) 25 mg PO DAILY [facility] Last Admin: 06/10/19 09:20 Dose: 25 mg Ondansetron HCl (Zofran) 4 mg IVPUSH Q4H PRN PRN Reason: Nausea Sodium Chloride (Saline Flush) 10 ml FLUSH ASDIRECTED PRN PRN Reason: Keep Vein Open Sodium Chloride (Saline Flush) 2.5 ml FLUSH ASDIRECTED PRN PRN Reason: Keep Vein Open Discontinued Medications Albuterol/Ipratropium (Duoneb 3.0-0.5 Mg/3 Ml) 3 ml NEB ONETIME ONE Stop: 06/08/19 10:51 Last Admin: 06/08/19 11:17 Dose: 3 ml Furosemide (Lasix) 40 mg IVPUSH NOW ONE Stop: 06/08/19 14:00 Last Admin: 06/08/19 16:22 Dose: Not Given Furosemide (Lasix) 40 mg IVPUSH NOW ONE Stop: 06/08/19 16:16 Last Admin: 06/08/19 16:46 Dose: 40 mg Furosemide (Lasix) 40 mg IVPUSH NOW ONE Stop: 06/09/19 08:01 Last Admin: 06/09/19 08:44 Dose: 40 mg Furosemide (Lasix) 40 mg IVPUSH NOW ONE Stop: 06/09/19 08:46 Last Admin: 06/09/19 08:45 Dose: Not Given - Exam Quality Assessment: Denies: Supplemental Oxygen General: Reports: Alert, Oriented, Cooperative HEENT: Reports: Pupils Equal, Pupils Reactive Neck: Reports: Supple, Trachea Midline, No JVD Lungs: Reports: Clear to Auscultation, Normal Respiratory Effort Cardiovascular: Reports: Regular Rate, Regular Rhythm, No Murmurs, Irregular Rhythm GI/Abdominal Exam: Normal Bowel Sounds, Soft, No Distention Back Exam: Reports: Normal Inspection, Full Range of Motion Extremities: Normal Inspection, Pedal Edema (+1) Skin: Reports: Warm, Dry, Intact Neurological: Reports: No New Focal Deficit Psy/Mental Status: Reports: Alert, Normal Affect
--- NOTE | 2019-06-13 12:58 | ECHO ---
The echocardiogram report can be seen in this patient's EMR (Electronic Medical Record) in the Reports section. The echocardiogram report has been scanned into PACS and can be seen there as well. CHEMO
== END 2019-06-10 12:00 | disposition home or self-care (01) ==
LOC: MW.ED 10:12 → MW.MS 13:00
PROVIDERS: ADMIT Internal Medicine; ATTEND Internal Medicine
DX: I11.0 Hypertensive heart disease with heart failure (principal); I50.9 Heart failure, unspecified; E11.9 Type 2 diabetes mellitus without complications; E80.6 Other disorders of bilirubin metabolism; R74.0 Nonspecific elevation of levels of transaminase and lactic acid dehydrogenase [LDH]; J45.909 Unspecified asthma, uncomplicated; F17.290 Nicotine dependence, other tobacco product, uncomplicated; E66.9 Obesity, unspecified; Z68.36 Body mass index [BMI] 36.0-36.9, adult; Z66 Do not resuscitate; Z91.013 Allergy to seafood; Z88.0 Allergy status to penicillin; Z79.899 Other long term (current) drug therapy
CPT/HCPCS: 36415; 71045; 76705; 80048; 80053; 80074; 82962; 83735; 83880; 84484; 85025; 85610; 85652; 86140; 93005; 93306; 94640; 96372; 96374; 96375; 96376; 99285; A9270; G0378; J1650; J1940; 99284; J7620-GY